=== PATIENT | female | born 1950 | race Caucasian/White ===

== ENCOUNTER 2018-11-11 11:08 | Inpatient (IN) | payer MEDICARE, BC ==
[2018-11-11] MEDS ORDERED: Temazepam 15 MG Cap PO PRN (15:18)
[2018-11-11] MEDS ORDERED: Bisacodyl 10 MG Supp RECTAL PRN (15:25)
[2018-11-11] MEDS ORDERED: Loperamide 2 MG Tab PO PRN (15:30)
[2018-11-11] MEDS ORDERED: Hydrocortisone 2.5% Crm 30 GM Tube TOP PRN (15:30)
[2018-11-11] MEDS ORDERED: Albuterol/Ipratropium 3.0-0.5 MG/3 ML Neb Soln NEB PRN (15:31)
[2018-11-11] MEDS ORDERED: Albuterol 0.083% 2.5 MG/3 ML Neb Soln INH PRN (16:00)
[2018-11-11] MEDS ORDERED: Warfarin 5 MG Tab PO SCH (16:00)
[2018-11-11] MEDS ORDERED: Ondansetron 4 MG Tab.DIS PO PRN (16:00)
--- NOTE | 2018-11-11 16:13 | PCM.HP ---
H&P History of Present Illness - General Date of Service: 11/11/18 Admit Problem/Dx: Admission Diagnosis/Problem Admission Diagnosis/Problem Osteoarthritis Source of Information: Patient, Family (Sister and son), Old Records ([facility] chart/EMR), Other (Limited transfer records from [facility]. [facility] records from [place]) History Limitations: Reports: No Limitations - History of Present Illness Initial Comments - Free Text/Narative: The patient was brought to the emergency room via private automobile from [facility] in [place] for direct admission into our swing bed unit after recent right total knee arthroplasty, which was complicated by postoperative anemia and difficult pain control. The patient had be placed on an IV heparin drip with additional IV morphine required for proper pain control. The patient denies any chest pain/pressure, heart flutter, dizziness, orthostasis, orthopnea , diaphoresis, paresthesias, recent decreased exercise tolerance, or any other anginal-type symptoms, although some moderate fatigue since the above surgery and hospitalization. No recent history of abdominal pain, heartburn, nausea, diarrhea, melena, gross hematochezia, or any food intolerance, including fatty foods, etc., although some mild constipation secondary to her narcotic medications. She denies any gross hematuria, colic, or other UTI symptoms. The patient also denies any recent fever, cough, wheezing, dyspnea, etc.. Onset of Symptoms: Reports: Gradual Duration of Symptoms: Reports: Constant, Improving Location: Reports: Upper Extremity, Right. Denies: Head, Face, Neck, Chest, Abdomen, Back, Pelvis, Upper Extremity, Left, Lower Extremity, Left, Lower Extremity, Right, Generalized, Radiates to Quality: Reports: Ache, Same as Previous Episode Severity: Moderate Improves with: Reports: Rest Worsens with: Reports: Movement Context: Reports: Other (As above). Denies: Rest, Trauma Associated Symptoms: Reports: Weakness (Improving). Denies: No Other Symptoms, Confusion, Chest Pain, Cough, cough w sputum, Fever/Chills, Headaches, Loss of Appetite, Malaise, Nausea/Vomiting, Rash, Seizure, Shortness of Breath, Syncope Right Knee Pain Score (Numeric/FACES): 5 - Related Data Allergies/Adverse Reactions: Allergies Allergy/AdvReac Type Severity Reaction Status Date / Time amoxicillin [Amoxicillin] Allergy Unknown Cannot Verified 11/11/18 13:34 Remember amoxicillin trihydrate Allergy Unknown Cannot Verified 11/11/18 13:34 [From Augmentin] Remember cefaclor [From Ceclor] Allergy Unknown Cannot Verified 11/11/18 13:34 Remember cephalexin [Cephalexin] Allergy Unknown Cannot Verified 11/11/18 13:34 Remember clavulanic acid Allergy Unknown Cannot Verified 11/11/18 13:34 Remember hydrocodone Allergy Unknown Cannot Verified 11/11/18 13:34 Remember potassium clavulanate Allergy Unknown Cannot Verified 11/11/18 13:34 [From Augmentin] Remember sulfamethizole Allergy Unknown Cannot Verified 11/11/18 13:34 Remember sulfisoxazole Allergy Unknown Cannot Verified 11/11/18 13:34 [From Gantrisin] Remember sulfisoxazole acetyl Allergy Unknown Cannot Verified 11/11/18 13:34 [From Gantrisin] Remember Home Medications: Home Meds Albuterol Sulfate [Albuterol Sulfate HFA] 2 puff INH Q4HR PRN 09/10/13 [History] Phytonadione [Vitamin K] 100 mcg PO DAILY 09/10/13 [History] Spironolactone [Aldactone] 25 mg PO DAILY 09/10/13 [History] Warfarin Sodium [Jantoven] 5 mg PO SUTUTHSA 09/10/13 [History] Zolpidem [Ambien] 5 mg PO BEDTIME 09/10/13 [History] atorvaSTATin [Lipitor] 20 mg PO BEDTIME 09/10/13 [History] traZODone 100 mg PO BEDTIME 09/10/13 [History] Acetaminophen [Tylenol Extra Strength] 2 tab PO TID 11/11/18 [History] Alendronate Sodium [Fosamax] 70 mg PO ASDIRECTED 11/11/18 [History] Allopurinol [Zyloprim] 100 mg PO DAILY 11/11/18 [History] Anastrozole [Arimidex] 1 mg PO DAILY 11/11/18 [History] Ascorbic Acid 500 mg PO TID 11/11/18 [History] Bisacodyl [Dulcolax] 5 mg PO BID PRN 11/11/18 [History] Bisacodyl [Dulcolax] 10 mg RECTAL DAILY PRN 11/11/18 [History] Calcium Carbonate [Calcium] 500 mg PO QAM 11/11/18 [History] Cetirizine HCl 10 mg PO DAILY 11/11/18 [History] Cholecalciferol (Vitamin D3) [Vitamin D3] 1,000 units PO DAILY 11/11/18 [History ] Clindamycin HCl 300 mg PO ASDIRECTED PRN 11/11/18 [History] Docusate Sodium 100 mg PO DAILY 11/11/18 [History] Doxepin [SINEquan] 10 mg PO BEDTIME 11/11/18 [History] Ferrous Sulfate 325 mg PO TIDMEALS 11/11/18 [History] Furosemide 20 mg PO DAILY@1200 11/11/18 [History] Furosemide [Lasix] 40 mg PO QAM 11/11/18 [History] HYDROmorphone [Dilaudid] 2 mg PO Q4H PRN MDD total knee arthroplasty 11/11/18 [ History] Hydrocortisone [Proctozone-HC 2.5% Crm] 1 applic RECTAL ASDIRECTED 11/11/18 [ History] Loperamide [Imodium AD] 2 mg PO ASDIRECTED MDD 8 caps per day 11/11/18 [History] Loperamide [Imodium AD] 4 mg PO ASDIRECTED PRN MDD 8 Caps per day 11/11/18 [ History] Non-Formulary Medication [NF Drug] 1 cap PO DAILY 11/11/18 [History] Polyethylene Glycol 3350 [MiraLAX] 1 packet PO DAILY PRN 11/11/18 [History] Propranolol [Inderal] 20 mg PO DAILY 11/11/18 [History] Warfarin [Coumadin] 7.5 mg PO MOWEFR 11/11/18 [History] Past Medical History HEENT History: Reports: Cataract, Impaired Vision, Other (See Below). Denies: Allergic Rhinitis, Glaucoma, Hard of Hearing, Macular Degeneration, Otitis Media , Retinal Detachment Other HEENT History: Patient wears reading glasses. Cardiovascular History: Reports: Afib, Cardiomyopathy, Heart Failure, Heart Murmur, Heart Valve Replacement, High Cholesterol, Hypertension, Other (See Below). Denies: Aneurysm, Arrhythmia, Blood Clots/VTE/DVT, CAD, NM, PVD, Syncope Other Cardiovascular History: Diastolic dysfunction with moderate right and left atrial enlargement/dilatation and mild to moderate pulmonary hypertension by echocardiogram with persistent tricuspid valve insufficiency as below. Severe tricuspid valve insufficiency with previous mitral valve insufficiency requiring mechanical valve replacement as below. Moderate cardiomegaly with no previous history of NM. Hyperlipidemiamixed. Respiratory History: Reports: Asthma, Bronchitis, Recurrent, Intubation, Previous. Denies: COPD, Intubation, Difficult, PE, Pneumonia, Recurrent, Pneumothorax, Pulmonary Fibrosis, TB Gastrointestinal History: Reports: Colon Polyp, Diverticulosis, Hemorrhoids, Other (See Below). Denies: Celiac Disease, Cholelithiasis, Chronic Constipation , Chronic Diarrhea, Fecal Incontinence, Gastritis, GERD, GI Bleed, Hepatitis, Hiatal Hernia, Inflammatory Bowel Disease, Irritable Bowel Syndrome, Jaundice, Pancreatitis, PUD Other Gastrointestinal History: Sigmoid diverticulosis with excision of her adenoma from the descending colon on 10/25/18. Genitourinary History: Reports: Urinary Incontinence. Denies: Acute Renal Failure, Chronic Renal Insuffiency, Renal Calculus, STD, UTI, Recurrent MEDICAL IMAGING SPECIALIST History: Reports: , Spontaneous : 5 Para: 4 LMP (Approximate): Other (See Below) Other OB/BYN History: First trimester SAB. Otherwise, Full term without complications during pregnancies or deliveries Musculoskeletal History: Reports: Arthritis, Back Pain, Chronic, Fracture, Gout , Neck Pain, Chronic, Osteoarthritis, Osteoporosis, Other (See Below). Denies: RA, SLE Other Musculoskeletal History: Bilateral distal radial ulnar fractures 2 initially at age 4. Neurological History: Reports: Headaches, Chronic, Migraines, Other (See Below) . Denies: Cerebral Aneurysms, Concussion, CVA, Head Trauma, MS, Neuropathy, Peripheral, Parkinson's, Seizure, TIA, Vertigo Other Neuro History: Right frontal CVA in July 2012. Chronic essential resting tremor. Psychiatric History: Reports: None. Denies: Abuse, Victim of, ADD, ADHD, Addiction, Anxiety, Depression, Psych Hospitalization(s), PTSD, Suicide Attempt , Suicidal Ideation Endocrine/Metabolic History: Reports: Multinodular Thyroid, Osteopenia, Osteoporosis. Denies: Diabetes, Gestational, Diabetes, Type I, Diabetes, Type II, Diabetes Mellitus, Type 3c, Hypothyroidism, IDDM Hematologic History: Reports: Anemia, Iron Deficiency, Other (See Below) Other Hematologic History: Thrombocytopenia. Immunologic History: Denies: AIDS, HIV, Immunosuppression, SLE Oncologic (Cancer) History: Reports: Breast, Other (See Below). 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 Dermatologic History: Reports: None. Denies: Eczema, Psoriasis - Infectious Disease History Infectious Disease History: Reports: Chicken Pox, Measles, Mumps. Denies: C- Difficile, Human Papilloma Virus (HPV), Meningitis, Mononucleosis, Pertussis ( Whooping Cough), Rheumatic Fever, Rubella, Scarlet Fever, Shingles, TB - Past Surgical History Head Surgeries/Procedures: Reports: None HEENT Surgical History: Reports: Adenoidectomy, Cataract Surgery, Laser Surgery , Oral Surgery, Tonsillectomy, Other (See Below). Denies: Eye Surgery, LASIK, Myringotomy w Tube(s), Naso-Sinus Surgery Other HEENT Surgeries/Procedures: Tonsillectomy and adenoidectomy at age 7. Bilateral cataract surgery 2012 with subsequent bilateral YAG of the posterior capsule in September 2018. [place] teeth extraction. Dental implant in 2018. Cardiovascular Surgical History: Reports: Valve Replacement, Other (See Below). Denies: Varicose, Vascular Surgery Other Cardiovascular Surgeries/Procedures: Mechanical mitral valve placement on 09/13/07. Respiratory Surgical History: Reports: Thoracentesis, Thoracotomy, Other (See Below) Other Respiratory Surgeries/Procedures: Right-sided pneumothorax with chest tube required at time of mitral valve replacement as above. GI Surgical History: Reports: Colonoscopy, Polypectomy, Other (See Below). Denies: Appendectomy, Cholecystectomy, EGD, Hernia, Abdominal, Hernia, Inguinal , Hernia Repair/Other Other GI Surgeries/Procedures: Colonoscopy with concomitant Polypectomy from the descending colon and additional hemorrhoid banding on 10/15/18. Flexible sigmoidoscopy on 08/12/13. Female Surgical History: Reports: Breast Biopsy (As below). Denies: Section, D&C, Hysterectomy, Oophorectomy, Salpingo-Oophorectomy, Tubal Ligation Endocrine Surgical History: Reports: Thyroid Biopsy, Other (See Below) Other Endocrine Surgeries/Procedures: Thyroid biopsy on 11/11/12. Neurological Surgical History: Reports: None. Denies: C-Spine, Discectomy, Laminectomy, Lumbar Spine, Sacral Spine, Spinal Fusion, Thoracic Spine, Vertebroplasty Musculoskeletal Surgical History: Reports: Joint Replacement, Knee Replacement, Other (See Below). Denies: Arthroscopic Knee, Arthroscopic Procedure, Carpal Tunnel, Ganglion Cyst, ORIF Other Musculoskeletal Surgeries/Procedures:: Right total knee arthroplasty on with previous left total knee arthroplasty in 2004. Oncologic Surgical History: Reports: Biopsy of Breast, Lumpectomy, Other (See Below) Other Oncologic Surgeries/Procedures: Left breast biopsy with subsequent left breast lumpectomy and lymph node dissection on 07/01/13. Dermatological Surgical History: Reports: None - Past Imaging History Past Imaging History: Reports: CAT Scan (Maxillofacial and head on 11/06/12.), Mammogram (Last on 04/25/13), Stress Testing (Low level stress test on 06/02/09) , Ultrasound (Left breast ultrasound on 04/25/13. Right leg soft tissue ultrasound on 09/04/11.) Social & Family History - Family History HEENT: Reports: Allergic Rhinitis, Glaucoma, Macular Degeneration, Retinal Detachment, Other (See Below) Other HEENT Family History: Sister with allergic rhinitis. Sister with macular degeneration. Brother with detached retina. Maternal grandfather with glaucoma. Cardiac: Reports: CAD, NM, Other (See Below) Other Cardiac Family History: Mother with NM in her 50s and concomitant valve replacement. Father with NM in his 60s. Respiratory: Reports: Asthma, COPD, Other (See Below) Other Respiratory Family Hisory: Sister with asthma. Brothers 2, mother, and father with COPD with history of tobacco use in all the above family members. GI: Reports: Colon Polyps, Other (See Below) Other GI Family History: Sister and brother with unknown type of colonic polyps. : Reports: Renal Disease/Insufficiency, Other (See Below) Other Family History: Other with end-stage renal disease of unknown etiology who refused dialysis. Musculoskeletal: Reports: Arthritis, Gout, Osteoarthritis, RA, Other (See Below) Other Musculoskeletal Family History: Father with history of gout and sister with rheumatoid arthritis. Endocrine/Metabolic: Reports: Hypothyroidism, Other (See Below) Other Endocrine/Metabolic Family History: Other with hypothyroidism Immunologic: Reports: Immunosuppression, Other (See Below) Other Immunologic Family History: Sister with unknown type of immunodeficiency. Oncologic: Reports: Breast, Leukemia, Lung, Ovarian, Other (See Below) Other Oncologic Family History: Sister with fatal metastatic ovarian cancer area first cousin with fatal breast cancer in her 40s to 50s. Mother with fatal lung cancer at age 63 with history of tobacco use. Paternal grandmother with unknown type of fatal leukemia in her 80s. - Tobacco Use Smoking Status *Q: Never Smoker Tobacco Use Within Last Twelve Months: No Used Tobacco, but Quit: No Smoking Cessation Information Provided To Patient: No Second Hand Smoke Exposure: No Second Hand Smoke Education Provided: No - Caffeine Use Caffeine Use: Reports: Soda (1 soda 2 times per week). Denies: Coffee, Energy Drinks, Tea - Alcohol Use Alcohol Use History: No Days Per Week of Alcohol Use: 0 Number of Drinks Per Day: 0 Total Drinks Per Week: 0 Total Drinks Per Week Comment: No previous DWIs, problems with alcohol abuse, etc. Alcohol Use in Last Twelve Months: No - Recreational Drug Use Recreational Drug Use: No Drug Use in Last 12 Months: No Recreational Drug Type: Denies: Amphetamines (Speed), Cocaine, Heroin, Inhalants (Glues, Solvents, Aerosols), LSD (Acid), Marijuana/Hashish, Methamphetamine, Morphine, Oxycodone - Living Situation & Occupation Living situation: Reports: (2012, 4 children), Alone H&P Review of Systems - Review of Systems: Review Of Systems: ROS reveals no pertinent complaints other than HPI. Exam - Exam Exam: See Below - Vital Signs Vital Signs: Last Vital Signs Temp 36.7 C 11/11/18 14:18 Pulse 78 11/11/18 14:18 Resp 20 11/11/18 14:18 BP 154/76 H 11/11/18 14:18 Pulse Ox 100 11/11/18 14:18 Weight: 93.44 kg - Exam Quality Assessment: DVT Prophylaxis. No: Supplemental Oxygen, Central Line/PICC , Urinary Catheter, Skin Breakdown, Restraints General: Alert, Oriented, Cooperative HEENT: Conjunctiva Clear, EACs Clear, EOMI, Hearing Intact, Mucosa Moist & [place] , Nares Patent, Normal Nasal Septum, Posterior Pharynx Clear, TMs Clear, Glasses , PERRLA Neck: Supple, Trachea Midline, Carotid Bruit (Mild bilateral carotid bruits versus transmitted heart sounds). No: Lymphadenopathy, Thyromegaly Lungs: Clear to Auscultation, Normal Respiratory Effort. No: Rub Cardiovascular: Regular Rate, Irregular Rhythm, Systolic Murmur (12/6 ANAMARIA of the aortic and mitral valves with additional mitral valve click). No: Rubs, Gallop/S3, Gallop/S4 GI/Abdominal Exam: Normal Bowel Sounds, Soft, Non-Tender, No Organomegaly, No Distention, No Abnormal Bruit, No Mass, Pelvis Stable, Other (Severe ecchymosis in the abdominal region secondary to previous IV heparin therapy, etc.). No: Guarding (Female) Exam: Deferred Rectal (Female) Exam: Deferred Back Exam: Normal Inspection, Full Range of Motion. No: CVA Tenderness (L), CVA Tenderness (R), Muscle Spasm Extremities: No Pedal Edema, Normal Capillary Refill, Joint Swelling (Right knee postoperative with dressing in place), Limited Range of Motion (Right knee secondary to recent surgery with automatic cooling pad in place), Other ( Multiple ecchymoses on the hands and forearms secondary to previous anticoagulation). No: Rizwana's Sign Peripheral Pulses: 2+: Radial (L), Radial (R), Dorsalis Pedis (L), Dorsalis Pedis (R) Skin: Ecchymosis (As above), Wound (Right knee postoperative) Neurological: Cranial Nerves Intact, Other (Moderate resting tremor without rigidity or cogwheeling), Babinski Absent Neuro Extensive - Mental Status: Alert, Oriented x3, Normal Mood/Affect, Normal Cognition Psychiatric: Alert, Normal Affect, Normal Mood. No: Agitated, Suicidal Ideation , Homicidal Ideation, Hallucinations, Withdrawal Symptoms - Patient Data Lab Results Last 24 hrs: To beconducted in the a.m. - Problem List (1) Osteoarthritis SNOMED Code(s): 261891298 ICD Code: M19.90 - UNSPECIFIED OSTEOARTHRITIS, UNSPECIFIED SITE Status: Acute Priority: High Current Visit: Yes Problem Details: Patient admitted to swing bed for further pain control, physical therapy, and occupational therapy. Attempt to taper patient's off of narcotics in the near future with consideration of regularly dosed Aleve therapy. Otherwise follow-up with and orthopedic clinic as already scheduled. Qualifiers: Osteoarthritis location: multiple joints (2) Atrial fibrillation SNOMED Code(s): 59678335 ICD Code: I48.91 - UNSPECIFIED ATRIAL FIBRILLATION Status: Chronic Priority: Medium Current Visit: Yes Problem Details: No chest pain or anginal type symptoms. IV heparinization was required during recent hospitalization with apparently therapeutic INR prior to transfer. Repeat blood work in the a.m. Qualifiers: Atrial fibrillation type: chronic Qualified Code(s): I48.2 - Chronic atrial fibrillation (3) Postoperative anemia SNOMED Code(s): 855709076, 597287061 ICD Code: D64.9 - ANEMIA, UNSPECIFIED Status: Chronic Priority: Medium Current Visit: Yes Problem Details: Moderate to severe postoperative anemia. Iron supplementation has been initiated by transferring physicians. Continue to observe closely especially in light of her Coumadin therapy for her atrial fibrillation (4) CHF (congestive heart failure) SNOMED Code(s): 51781208 ICD Code: I50.9 - HEART FAILURE, UNSPECIFIED Status: Chronic Priority: Medium Current Visit: Yes Problem Details: No Chest pain or anginal complaints as above. (5) Asthma SNOMED Code(s): 470749939 ICD Code: J45.909 - UNSPECIFIED ASTHMA, UNCOMPLICATED Status: Chronic Priority: Medium Current Visit: Yes Problem Details: Stable by history. Change from inhaler to nebulizer treatments secondary to difficult postoperative course prior to transfer. Qualifiers: Asthma severity: unspecified severity Asthma persistence: intermittent Problem List Initiated/Reviewed/Updated: Yes Orders Last 24hrs: Active Orders 24 hr Category Date Time Status Patient Status [ADT] Routine ADT 11/11/18 15:18 Active Communication Order [RC] 2000 Care 11/11/18 15:31 Active Intake and Output [RC] ASDIRECTED Care 11/11/18 15:18 Active Oxygen Therapy [RC] .PRN Care 11/11/18 15:18 Active RT Aerosol Therapy [RC] ASDIRECTED Care 11/11/18 15:33 Active RT Aerosol Therapy [RC] ASDIRECTED Care 11/11/18 15:34 Active RT Incentive Spirometry [RC] ASDIRECTED Care 11/11/18 15:34 Active Up With Assistance [RC] ASDIRECTED Care 11/11/18 15:18 Active VTE/DVT Education [RC] .PRN Care 11/11/18 15:18 Active Vital Signs [RC] DAILY Care 11/11/18 15:18 Active Consult to Case Management/Plant Attendant [CONS] Cons 11/11/18 15:18 Active Routine OT Evaluation and Treatment [CONS] Routine Cons 11/11/18 15:18 Active PT Evaluation and Treatment [CONS] Routine Cons 11/11/18 15:18 Active Fluid Restriction [DIET] Diet 11/11/18 Dinner Active CBC WITH AUTO DIFF [HEME] Routine Lab 11/12/18 05:11 Ordered COMPREHENSIVE METABOLIC PN,CMP [CHEM] Routine Lab 11/12/18 05:11 Ordered INR,PT,PROTHROMBIN TIME [COAG] Routine Lab 11/12/18 05:11 Ordered PRO B-TYPE NATRIUR PEPT,BNPPRO [CHEM] Routine Lab 11/12/18 05:11 Ordered TROPONIN I [CHEM] Routine Lab 11/12/18 05:11 Ordered URIC ACID [CHEM] Routine Lab 11/12/18 05:11 Ordered Acetaminophen [Tylenol Extra Strength] Med 11/11/18 18:00 Active 1,000 mg PO TID Albuterol [Proventil Neb Soln] Med 11/11/18 16:00 Active 2.5 mg INH Q2H PRN Albuterol/Ipratropium [DuoNeb 3.0-0.5 MG/3 ML] Med 11/11/18 15:31 Active 3 ml NEB Q4HRRT PRN Albuterol/Ipratropium [DuoNeb 3.0-0.5 MG/3 ML] Med 11/11/18 20:00 Active 3 ml NEB Q6HRRT Alendronate [Fosamax] Med 11/11/18 15:30 Ordered 70 mg PO ASDIRECTED Allopurinol [Zyloprim] Med 11/12/18 08:00 Active 100 mg PO DAILY Anastrozole [Arimidex] Med 11/12/18 08:00 Active 1 mg PO DAILY Ascorbic Acid [Vitamin C] Med 11/11/18 18:00 Active 500 mg PO TID Bisacodyl [Dulcolax] Med 11/11/18 15:25 Active 10 mg RECTAL DAILY PRN Bisacodyl [Dulcolax] Med 11/11/18 15:25 Active 5 mg PO BID PRN Calcium Carbonate [Calcium] Med 11/12/18 08:00 Ordered 500 mg PO QAM Cetirizine [ZyrTEC] Med 11/12/18 08:00 Active 10 mg PO DAILY Cholecalciferol (Vitamin D3) [Vitamin D3] Med 11/12/18 08:00 Active 1,000 units PO DAILY Docusate Sodium [Colace] Med 11/12/18 08:00 Active 100 mg PO DAILY Doxepin [SINEquan] Med 11/11/18 20:00 Active 10 mg PO BEDTIME Ferrous Sulfate Med 11/11/18 18:00 Active 325 mg PO TIDMEALS Furosemide [Lasix] Med 11/12/18 12:00 Ordered 20 mg PO DAILY@1200 Furosemide [Lasix] Med 11/12/18 08:00 Ordered 40 mg PO QAM HYDROmorphone [Dilaudid] Med 11/11/18 15:25 Ordered 2 mg PO Q4H PRN Hydrocortisone [Proctozone-HC 2.5% Crm] Med 11/11/18 15:30 Ordered DOSE gm TOP ASDIRECTED Loperamide [Imodium AD] Med 11/11/18 15:30 Ordered 2 mg PO ASDIRECTED Non-Formulary Medication [NF Drug] Med 11/12/18 08:00 Ordered DOSE each PO DAILY Ondansetron [Zofran ODT] Med 11/11/18 15:18 Ordered 4 mg PO Q6H PRN Polyethylene Glycol 3350 [MiraLAX] Med 11/11/18 15:28 Ordered DOSE gm PO DAILY PRN Propranolol [Inderal] Med 11/12/18 08:00 Ordered 20 mg PO DAILY Spironolactone [Aldactone] Med 11/12/18 08:00 Ordered 25 mg PO DAILY Warfarin [Coumadin] Med 11/12/18 15:28 Ordered 5 mg PO SUTUTHSA Warfarin [Coumadin] Med 11/11/18 15:30 Ordered 7.5 mg PO MOWEFR Zolpidem Med 11/11/18 20:00 Ordered 5 mg PO BEDTIME atorvaSTATin [Lipitor] Med 11/11/18 20:00 Ordered 20 mg PO BEDTIME traZODone Med 11/11/18 20:00 Ordered 100 mg PO BEDTIME Patient May [OM.PC] Click To Edit Oth 11/11/18 15:18 Ordered Resuscitation Status Routine Resus Stat 11/11/18 15:18 Ordered Medication Orders Acetaminophen (Tylenol Extra Strength) 1,000 mg PO TID ESTEFANIA Albuterol (Proventil Neb Soln) 2.5 mg INH Q2H PRN PRN Reason: SHORTNESS OF BREATH Albuterol/Ipratropium (Duoneb 3.0-0.5 Mg/3 Ml) 3 ml NEB Q4HRRT PRN PRN Reason: Dyspnea Albuterol/Ipratropium (Duoneb 3.0-0.5 Mg/3 Ml) 3 ml NEB Q6HRRT [facility] Alendronate Sodium (Fosamax) 70 mg PO ASDIRECTED [facility] Allopurinol (Zyloprim) 100 mg PO DAILY [facility] Anastrozole (Arimidex) 1 mg PO DAILY [facility] Ascorbic Acid (Vitamin C) 500 mg PO TID [facility] Bisacodyl (Dulcolax) 5 mg PO BID PRN PRN Reason: Constipation Bisacodyl (Dulcolax) 10 mg RECTAL DAILY PRN PRN Reason: Constipation Cetirizine HCl (Zyrtec) 10 mg PO DAILY [facility] Cholecalciferol (Vitamin D3) 1,000 units PO DAILY [facility] Docusate Sodium (Colace) 100 mg PO DAILY [facility] Doxepin HCl (Sinequan) 10 mg PO BEDTIME [facility] Ferrous Sulfate (Ferrous Sulfate) 325 mg PO TIDMEALS [facility] Furosemide (Lasix) 20 mg PO DAILY@1200 [facility] Furosemide (Lasix) 40 mg PO QAM [facility] Hydrocortisone (Proctozone-Hc 2.5% Crm) gm TOP ASDIRECTED [facility] Hydromorphone HCl (Dilaudid) 2 mg PO Q4H PRN PRN Reason: Pain (moderate 4-6) Stop: 11/17/18 20:00 Loperamide HCl (Imodium Ad) 2 mg PO ASDIRECTED [facility] Non-Formulary Medication (Atorvastatin [Lipitor]) 20 mg PO BEDTIME [facility] Non-Formulary Medication (Calcium Carbonate [Calcium]) 500 mg PO QAM [facility] Non-Formulary Medication (Nf Drug) each PO DAILY [facility] Non-Formulary Medication (Trazodone) 100 mg PO BEDTIME [facility] Non-Formulary Medication (Zolpidem) 5 mg PO BEDTIME [facility] Ondansetron HCl (Zofran Odt) 4 mg PO Q6H PRN PRN Reason: Nausea/Vomiting Polyethylene Glycol (Miralax) gm PO DAILY PRN PRN Reason: Constipation Propranolol HCl (Inderal) 20 mg PO DAILY [facility] Spironolactone (Aldactone) 25 mg PO DAILY [facility] Warfarin Sodium (Coumadin) 7.5 mg PO MOWEFR [facility] Warfarin Sodium (Coumadin) 5 mg PO [facility] Assessment/Plan Comment:: As above. Extensive precautions were given to the patient and her family, who are agreement with the treatment plan. Continue swing bed care as per instructions from physical therapy and occupational therapy.
[2018-11-11] MEDS: HYDROmorphone 2 MG Tab PO PRN (16:35)
[2018-11-11] MEDS: Bisacodyl 5 MG Tab PO PRN (16:36)
[2018-11-11] MEDS: Acetaminophen 500 MG Tab PO SCH (18:23)
[2018-11-11] MEDS: Ascorbic Acid 500 MG Tab PO SCH (18:25)
[2018-11-11] MEDS: Ferrous Sulfate 325 MG Tab PO SCH (18:25)
[2018-11-11] MEDS: Zolpidem 5 MG Tab PO SCH (20:05)
[2018-11-11] MEDS: Doxepin 10 MG Cap PO SCH (20:05)
[2018-11-11] MEDS: traZODone 50 MG Tab PO SCH (20:06)
[2018-11-11] MEDS: Albuterol/Ipratropium 3.0-0.5 MG/3 ML Neb Soln NEB SCH (20:06)
[2018-11-11] MEDS: atorvaSTATin 10 MG Tab PO SCH (20:06)
[2018-11-12] MEDS: HYDROmorphone 2 MG Tab PO PRN ×3 (01:13→20:08)
[2018-11-12] MEDS: Albuterol/Ipratropium 3.0-0.5 MG/3 ML Neb Soln NEB SCH ×2 (01:18→08:07)
[2018-11-12] MEDS: Sodium Chloride 0.9% 10 ML Syringe FLUSH PRN (08:04)
[2018-11-12] MEDS: Acetaminophen 500 MG Tab PO SCH ×3 (08:05→17:48)
[2018-11-12] MEDS: Cholecalciferol (Vitamin D3) 1,000 Unit Tab PO SCH (08:06)
[2018-11-12] MEDS: Docusate Sodium 100 MG Cap PO SCH (08:06)
[2018-11-12] MEDS: Ferrous Sulfate 325 MG Tab PO SCH ×3 (08:06→17:49)
[2018-11-12] MEDS: Spironolactone 25 MG Tab PO SCH (08:06)
[2018-11-12] MEDS: Allopurinol 100 MG Tab PO SCH (08:06)
[2018-11-12] MEDS: Propranolol 20 MG Tab PO SCH (08:07)
[2018-11-12] MEDS: Anastrozole 1 MG Tab PO SCH (08:07)
[2018-11-12] MEDS: Ascorbic Acid 500 MG Tab PO SCH ×3 (08:07→17:49)
[2018-11-12] MEDS: Cetirizine 10 MG Tab PO SCH (08:07)
[2018-11-12] MEDS: Furosemide 40 MG Tab PO SCH ×2 (08:07→11:50)
[2018-11-12] MEDS: Calcium Carbonate 500 MG Tab.Chew PO SCH (08:07)
--- NOTE | 2018-11-12 08:20 | PCM.PN ---
- General Info Date of Service: 11/12/18 Admission Dx/Problem (Free Text): 1. Status post right total knee arthroplasty 2. Postoperative anemia 3. Postoperative pain 4. Osteoarthritis Functional Status: Reports: Pain Controlled, Tolerating Diet, Ambulating, Urinating, Incentive Spirometry. Denies: New Symptoms Pain Score: 5 - Review of Systems General: Reports: Weakness (Mild postoperativeimproving). Denies: Fever, Fatigue, Chills, Night Sweats, Appetite (Adequate) HEENT: Denies: Ear Pain, Eye Pain, Headaches, Post Nasal Drip, Sinus Congestion , Sore Throat, Rhinitis, Visual Changes Pulmonary: Reports: No Symptoms. Denies: Shortness of Breath, Cough, Sputum, Wheezing Cardiovascular: Reports: No Symptoms. Denies: Chest Pain, Palpitations, Dyspnea on Exertion, Orthopnea, Edema, Lightheadedness Gastrointestinal: Reports: Constipation (Secondary to narcotics). Denies: Abdominal Pain, Decreased Appetite, Diarrhea, Difficulty Swallowing, Flatus, Hematochezia, Melena, Nausea, Vomiting Genitourinary: Reports: No Symptoms. Denies: Dysuria, Frequency, Burning, Urgency, Hematuria, Retention, Flank Pain Musculoskeletal: Reports: Leg Pain (Right knee postoperative), Joint Swelling ( Right knee). Denies: Neck Pain, Shoulder Pain, Arm Pain, Back Pain Skin: Reports: Bruising (Persistent but stable abdominal and extremity bruising) . Denies: Diaphoresis, Pruritis Neurological: Reports: Difficulty Walking (Postoperative), Weakness (As above). Denies: Confusion, Dizziness, Headache, Numbness, Paresthesia, Tingling, Change in Speech, Gait Disturbance Psychiatric: Reports: No Symptoms. Denies: Confusion, Depression, Anxiety, Agitation, Hallucinations - Patient Data Vitals - Most Recent: Last Vital Signs Temp 36.7 C 11/11/18 14:18 Pulse 78 11/11/18 14:18 Resp 20 11/11/18 14:18 BP 154/76 H 11/11/18 14:18 Pulse Ox 100 11/11/18 14:18 Vital Signs - 24 hr 11/11/18 14:18 Temperature [ 36.7 C Temporal] Pulse, 78 Peripheral [ Pulse Oximetry] Respiratory 20 Rate Blood Pressure 154/76 H [Right Upper Arm] O2 Sat by Pulse 100 Oximetry Weight - Most Recent: 93.44 kg I&O - Last 24 Hours: Intake & Output 11/11/18 11/12/18 11/12/18 22:59 06:59 14:59 Intake Total 75 Balance 75 Imaging Impressions - Last 24 Hours: Chest x-ray, PA and lateral, shows moderate cardiomegaly with mild centralized CHF and/or pulmonary hypertension. Mild COPD changes with no pulmonary infiltrates. Note status post medial sternotomy and mitral valve replacement. Surgical clips noted in the left breast. Moderate osteoarthritic and osteoporotic changes and kyphosis in the thoracic spine. Mild aortic valve calcification. No pneumothorax. Lab Results Last 24 Hours: Laboratory Results - last 24 hr 11/12/18 Range/Units 07:50 WBC 7.1 (4.0-10.2) K/uL RBC 2.19 L (3.77-5.09) M/uL Hgb 7.4 L* D (11.7-15.5) g/dL Hct 22.5 L* (34.0-46.0) % MCV 102.7 H (84.0-98.0) fL MCH 33.8 H (28.2-33.3) pg MCHC 32.9 (31.7-36.0) g/dL RDW 14.8 H (11.2-14.1) % Plt Count 157 D (150-350) K/uL Neut % (Auto) 79.5 (45.0-80.0) % Lymph % (Auto) 6.2 L (10.0-50.0) % [place] % (Auto) 11.6 (2.0-14.0) % Eos % (Auto) 2.4 (0.0-5.0) % Baso % (Auto) 0.3 (0.0-2.0) % Neut # (Auto) 5.62 (1.40-7.00) K/uL Lymph # (Auto) 0.44 L (0.50-3.50) K/uL [place] # (Auto) 0.82 (0.00-1.00) K/uL Eos # (Auto) 0.17 (0.00-0.50) K/uL Baso # (Auto) 0.02 (0.00-0.20) K/uL Med Orders - Current: Current Medications Acetaminophen (Tylenol Extra Strength) 1,000 mg PO TID ESTEFANIA Last Admin: 11/12/18 08:05 Dose: 1,000 mg Albuterol (Proventil Neb Soln) 2.5 mg INH Q2H PRN PRN Reason: SHORTNESS OF BREATH Albuterol/Ipratropium (Duoneb 3.0-0.5 Mg/3 Ml) 3 ml NEB Q4HRRT PRN PRN Reason: Dyspnea Albuterol/Ipratropium (Duoneb 3.0-0.5 Mg/3 Ml) 3 ml NEB Q6HRRT [facility] Last Admin: 11/12/18 08:07 Dose: Not Given Alendronate Sodium (Fosamax) 70 mg PO We@0600 [facility] Allopurinol (Zyloprim) 100 mg PO DAILY [facility] Last Admin: 11/12/18 08:06 Dose: 100 mg Anastrozole (Arimidex) 1 mg PO DAILY [facility] Last Admin: 11/12/18 08:07 Dose: 1 mg Ascorbic Acid (Vitamin C) 500 mg PO TID [facility] Last Admin: 11/12/18 08:07 Dose: 500 mg Atorvastatin Calcium (Lipitor) 20 mg PO BEDTIME [facility] Last Admin: 11/11/18 20:06 Dose: 20 mg Bisacodyl (Dulcolax) 5 mg PO BID PRN PRN Reason: Constipation Last Admin: 11/11/18 16:36 Dose: 5 mg Bisacodyl (Dulcolax) 10 mg RECTAL DAILY PRN PRN Reason: Constipation Calcium Carbonate/Glycine (Tums) 500 mg PO QAM [facility] Last Admin: 11/12/18 08:07 Dose: 500 mg Cetirizine HCl (Zyrtec) 10 mg PO DAILY [facility] Last Admin: 11/12/18 08:07 Dose: 10 mg Cholecalciferol (Vitamin D3) 1,000 units PO DAILY [facility] Last Admin: 11/12/18 08:06 Dose: 1,000 units Docusate Sodium (Colace) 100 mg PO DAILY [facility] Last Admin: 11/12/18 08:06 Dose: 100 mg Doxepin HCl (Sinequan) 10 mg PO BEDTIME [facility] Last Admin: 11/11/18 20:05 Dose: 10 mg Ferrous Sulfate (Ferrous Sulfate) 325 mg PO TIDMEALS [facility] Last Admin: 11/12/18 08:06 Dose: 325 mg Furosemide (Lasix) 20 mg PO DAILY@1200 [facility] Furosemide (Lasix) 40 mg PO QAM [facility] Last Admin: 11/12/18 08:07 Dose: 40 mg Heparin Sodium (Porcine) (Heparin Lock Flush 100 Units/Ml) 500 units FLUSH ASDIRECTED PRN PRN Reason: Other Last Admin: 11/12/18 08:04 Dose: 500 units Hydrocortisone (Proctozone-Hc 2.5% Crm) 0 gm TOP ASDIRECTED PRN PRN Reason: ITCHING OR MILD PAIN Hydromorphone HCl (Dilaudid) 2 mg PO Q4H PRN PRN Reason: Pain (moderate 4-6) Stop: 11/17/18 20:00 Last Admin: 11/12/18 08:04 Dose: 2 mg Loperamide HCl (Imodium Ad) 2 mg PO ASDIRECTED PRN PRN Reason: Diarrhea Non-Formulary Medication (Nf Drug) each PO DAILY [facility] Ondansetron HCl (Zofran Odt) 4 mg PO Q6H PRN PRN Reason: Nausea/Vomiting Polyethylene Glycol (Miralax) 17 gm PO DAILY PRN PRN Reason: Constipation Propranolol HCl (Inderal) 20 mg PO DAILY [facility] Last Admin: 11/12/18 08:07 Dose: 20 mg Sodium Chloride (Saline Flush) 10 ml FLUSH ASDIRECTED PRN PRN Reason: Keep Vein Open Last Admin: 11/12/18 08:04 Dose: 10 ml Spironolactone (Aldactone) 25 mg PO DAILY [facility] Last Admin: 11/12/18 08:06 Dose: 25 mg Trazodone HCl (Trazodone) 100 mg PO BEDTIME [facility] Last Admin: 11/11/18 20:06 Dose: 100 mg Warfarin Sodium (Coumadin) 7.5 mg PO MoWeFr@1600 [facility] Last Admin: 11/11/18 16:36 Dose: 7.5 mg Warfarin Sodium (Coumadin) 5 mg PO SuTuThSa@1600 [facility] Zolpidem Tartrate (Ambien) 5 mg PO BEDTIME [facility] Last Admin: 11/11/18 20:05 Dose: 5 mg Discontinued Medications Temazepam (Restoril) 15 mg PO BEDTIME PRN PRN Reason: Sleep - Exam Quality Assessment: DVT Prophylaxis (Coumadin). No: Supplemental Oxygen, Central Line/PICC, Urine Catheter, Skin Breakdown, Restraints General: Alert, Oriented, Cooperative, No Acute Distress HEENT: Pupils Equal, Pupils Reactive, EOMI, Mucous Membr. Moist/[place] Neck: Supple, Trachea Midline, No JVD, No Thyromegaly, Carotid Bruit (Stable mild bilateral carotid bruits versus transmitted heart sounds). No: Lymphadenopathy Lungs: Clear to Auscultation, Normal Respiratory Effort. No: Rub Cardiovascular: Regular Rate, Irregular Rhythm, Murmurs (Stable 12/6 ANAMARIA of the aortic and mitral valves with additional mitral valve click noted from her mechanical valve). No: Gallops, Rubs GI/Abdominal Exam: Normal Bowel Sounds, Soft, Non-Tender, No Organomegaly, No Distention, No Abnormal Bruit, No Mass, Other (Obese. Stable severe ecchymosis of the abdominal region). No: Guarding (Female) Exam: Deferred Back Exam: Full Range of Motion, Other (Mild kyphosis). No: CVA Tenderness (L) , CVA Tenderness (R), Muscle Spasm, Paraspinal Tenderness, Vertebral Tenderness Extremities: No Pedal Edema, Joint Swelling (Normal postoperative right knee effusion with dressing in place and only minimal hemorrhagic drainage and surrounding ecchymosis), Limited Range of Motion (Right knee postoperative). No : Rizwana's Sign, Increased Warmth Peripheral Pulses: 2+: Radial (L), Radial (R), Dorsalis Pedis (L), Dorsalis Pedis (R) Skin: Ecchymosis (As above) Wound/Incisions: Healing Well, Drainage (As above) Neurological: No New Focal Deficit, Other (Stable moderate resting tremor with no rigidity, cogwheeling, etc.) Psy/Mental Status: Alert, Normal Affect, Normal Mood. No: Agitated, Hallucinations, Withdrawal Symptoms EKG INTERPRETATION EKG Date: 11/12/18 Time: 09:47 Rhythm: A-Fib (With occasional PVCs) Rate (Beats/Min): 81 [place]: Normal (Left cardiac axis) P-Wave: Variable QRS: RBBB (0.14 representing a complete bifascicular bundle-branch block) ST-T: Other (T-wave inversion in leads 1 and aVL consistent with lateral wall cardiac ischemia) QT: Normal [place]/PQ Interval: Variable. Extreme poor R-wave progression in the anterior leads Comparison: NA - No Prior EKG EKG Interpretation Comments: 1. Lateral wall cardiac ischemia 2. Complete bifascicular bundle-branch block 3. PVCs - Problem List & Annotations (1) Osteoarthritis SNOMED Code(s): 343197592 Code(s): M19.90 - UNSPECIFIED OSTEOARTHRITIS, UNSPECIFIED SITE Status: Acute Priority: High Current Visit: Yes Qualifiers: Osteoarthritis location: multiple joints Annotation/Comment:: Improving postoperative right knee pain. Physical therapy and occupational therapy have been ordered. Patient admitted to swing bed for further pain control, physical therapy, and occupational therapy. Attempt to taper patient's off of narcotics in the near future with regularly dosed Aleve therapy to be initiated today. Continue to observe INRs closely. Otherwise follow-up with [facility] and orthopedic clinic as already scheduled. (2) Atrial fibrillation SNOMED Code(s): 58495255 Code(s): I48.91 - UNSPECIFIED ATRIAL FIBRILLATION Status: Chronic Priority: Medium Current Visit: Yes Qualifiers: Atrial fibrillation type: chronic Qualified Code(s): I48.2 - Chronic atrial fibrillation Annotation/Comment:: No chest pain or anginal type symptoms. Continue close observation of her INR secondary to Aleve therapy as above with elevated INR today. IV heparinization was required during recent hospitalization with apparently therapeutic INR prior to transfer. (3) Postoperative anemia SNOMED Code(s): 563894024, 202655794 Code(s): D64.9 - ANEMIA, UNSPECIFIED Status: Chronic Priority: Medium Current Visit: Yes Annotation/Comment:: Moderate to severe postoperative anemia. Iron supplementation on a 3 times a day basis had been initiated by transferring physicians. Continue to observe closely especially in light of her Coumadin therapy for her atrial fibrillation. Note significant abdominal, etc. ecchymosis, which is stable at this time. Repeat CBC with next INR. (4) CHF (congestive heart failure) SNOMED Code(s): 87705178 Code(s): I50.9 - HEART FAILURE, UNSPECIFIED Status: Chronic Priority: Medium Current Visit: Yes Qualifiers: Heart failure chronicity: chronic Annotation/Comment:: No Chest pain or anginal complaints as above. Troponin I is still normal, however elevated BNP today. Repeat blood work, including cardiac enzymes, INR, etc. in the a.m.. Note lateral wall cardiac ischemia by today's EKG. Increase her Lasix therapy to 40 mg by mouth twice a day, a.m. and at noon additional lisinopril every afternoon. Patient is already on spironolactone. May need additional potassium supplementation depending on blood work results tomorrow. (5) Asthma SNOMED Code(s): 843618203 Code(s): J45.909 - UNSPECIFIED ASTHMA, UNCOMPLICATED Status: Chronic Priority: Medium Current Visit: Yes Qualifiers: Asthma severity: unspecified severity Asthma persistence: intermittent Annotation/Comment:: Stable by history. Patient apparently only using her inhaler a few times per month prior to recent surgery. She does not wish to continue aggressive nebulizer treatments at this time, however she does agree to DuoNeb treatments on a when necessary basis. Changed from inhaler to nebulizer treatments secondary to difficult postoperative course prior to transfer at time of admission, however I will respect patient's wishes for change of this therapy as above. (6) PVC's (premature ventricular contractions) SNOMED Code(s): 48675700 Code(s): I49.3 - VENTRICULAR PREMATURE DEPOLARIZATION Status: Acute Priority: Medium Current Visit: Yes Onset Date: 11/12/18 Annotation/ Comment:: Newly diagnosed. Nonsymptomatic. Observe for now. (7) Bifascicular bundle branch block SNOMED Code(s): 44514571 Code(s): I45.2 - BIFASCICULAR BLOCK Status: Acute Priority: Medium Current Visit: Yes Onset Date: 11/12/18 Annotation/Comment:: Newly diagnosed. Observe for now. - Problem List Review Problem List Initiated/Reviewed/Updated: Yes - My Orders Last 24 Hours: My Active Orders 11/11/18 15:18 Patient Status [ADT] Routine Intake and Output [RC] ASDIRECTED Oxygen Therapy [RC] .PRN Up With Assistance [RC] ASDIRECTED VTE/DVT Education [RC] .PRN Vital Signs [RC] DAILY Consult to Case Management/Waffle Machine Operator [CONS] Routine OT Evaluation and Treatment [CONS] Routine PT Evaluation and Treatment [CONS] Routine Patient May [OM.PC] Click To Edit Resuscitation Status Routine 11/11/18 15:25 Bisacodyl [Dulcolax] 10 mg RECTAL DAILY PRN Bisacodyl [Dulcolax] 5 mg PO BID PRN HYDROmorphone [Dilaudid] 2 mg PO Q4H PRN 11/11/18 15:28 Polyethylene Glycol 3350 [MiraLAX] 17 gm PO DAILY PRN 11/11/18 15:30 Hydrocortisone [Proctozone-HC 2.5% Crm] 0 gm TOP ASDIRECTED PRN Loperamide [Imodium AD] 2 mg PO ASDIRECTED PRN 11/11/18 15:31 Communication Order [RC] 2000 Albuterol/Ipratropium [DuoNeb 3.0-0.5 MG/3 ML] 3 ml NEB Q4HRRT PRN 11/11/18 15:33 RT Aerosol Therapy [RC] ASDIRECTED 11/11/18 15:34 RT Aerosol Therapy [RC] ASDIRECTED RT Incentive Spirometry [RC] ASDIRECTED 11/11/18 16:00 Albuterol [Proventil Neb Soln] 2.5 mg INH Q2H PRN Ondansetron [Zofran ODT] 4 mg PO Q6H PRN Warfarin [Coumadin] 7.5 mg PO MoWeFr@1600 11/11/18 18:00 Acetaminophen [Tylenol Extra Strength] 1,000 mg PO TID Ascorbic Acid [Vitamin C] 500 mg PO TID Ferrous Sulfate 325 mg PO TIDMEALS 11/11/18 19:12 Communication Order [RC] 08,20 Heparin Sodium [Heparin Lock Flush 100 Units/ML] 500 units FLUSH ASDIRECTED PRN Sodium Chloride 0.9% [Saline Flush] 10 ml FLUSH ASDIRECTED PRN 11/11/18 19:13 Communication Order [RC] 08,11/11/18 19:14 Communication Order [RC] ,11/11/18 19:15 Communication Order [RC] 08,11/11/18 19:16 Communication Order [RC] ,11/11/18 20:00 Albuterol/Ipratropium [DuoNeb 3.0-0.5 MG/3 ML] 3 ml NEB Q6HRRT Doxepin [SINEquan] 10 mg PO BEDTIME Zolpidem [Ambien] 5 mg PO BEDTIME atorvaSTATin [Lipitor] 20 mg PO BEDTIME traZODone 100 mg PO BEDTIME 11/11/18 Dinner Fluid Restriction [DIET] 11/12/18 05:11 COMPREHENSIVE METABOLIC PN,CMP [CHEM] Routine INR,PT,PROTHROMBIN TIME [COAG] Routine PRO B-TYPE NATRIUR PEPT,BNPPRO [CHEM] Routine TROPONIN I [CHEM] Routine URIC ACID [CHEM] Routine 11/12/18 08:00 Allopurinol [Zyloprim] 100 mg PO DAILY Anastrozole [Arimidex] 1 mg PO DAILY Calcium Carbonate [Tums] 500 mg PO QAM Cetirizine [ZyrTEC] 10 mg PO DAILY Cholecalciferol (Vitamin D3) [Vitamin D3] 1,000 units PO DAILY Docusate Sodium [Colace] 100 mg PO DAILY Furosemide [Lasix] 40 mg PO QAM Non-Formulary Medication [NF Drug] DOSE each PO DAILY Propranolol [Inderal] 20 mg PO DAILY Spironolactone [Aldactone] 25 mg PO DAILY 11/12/18 12:00 Furosemide [Lasix] 20 mg PO DAILY@1200 11/12/18 16:00 Warfarin [Coumadin] 5 mg PO SuTuThSa@1600 11/13/18 06:00 Alendronate [Fosamax] 70 mg PO We@0600 - Assessment Assessment:: As above - Plan Plan:: As above. Extensive precautions were given to the patient, who is in agreement with the treatment plan. Continue swing bed care as per instructions from physical therapy and occupational therapy. Donato Guillory M.D., at the [facility] to follow the patient during my vacation.
[2018-11-12 08:38] LABS: CHLORIDE,CL 98 mmol/L (98-107); SODIUM,NA 133 mmol/L (136-145)
[2018-11-12] MEDS ORDERED: Furosemide 20 MG Tab PO SCH (12:00)
[2018-11-12] MEDS ORDERED: Warfarin 5 MG Tab PO SCH (16:00)
--- OUTSIDE RECORDS SUMMARY | 2018-11-12 16:25 | XMSREPORT ---
:1950 Author Organization [facility] Address [facility] [place] [address] Care Team Providers Name Role Phone Ezra Cerna Referring Physician Arnie Bailey MD Primary Care Provider Arnie Bailey MD Attributed Provider Reason for Referral (Routine) Status Reason Specialty Diagnoses / Procedures Referred By Contact Referred To Contact [address] [address] (Routine) Status Reason Specialty Diagnoses / Procedures Referred By Contact Referred To Contact [address] [address] Reason for Visit Auth/Cert (Routine) Status Reason Specialty Diagnoses / Referred By Referred To Procedures Contact Contact Continuity of Care Diagnoses Pain in right knee Unilateral primary osteoarthritis, right knee [place], Procedures ARTHROPLASTY KNEE CONDYLE & [facility] LAT COMPARTMENTS WWO AYDEN Davis MD [address] [place] [address] Encounter Details Date Type Department Care Team Description 11/05/2018 - Hospital Encounter [facility] [place], S/P total knee 11/11/2018 [place] [facility] MD Ryan arthroplasty, right [address] [place] [address] [place] [address] [place] [address] [place], [place] [phone] Allergies Active Allergy Reactions Severity Noted Date Comments Amoxicillin Hives (High), Rash High 12/06/2011 Augmentin Hives (High), Rash High 12/06/2011 Cefaclor Hives (High), Rash High 12/06/2011 Cephalexin Nausea and Vomiting, 12/06/2011 Diarrhea Clavulanic Acid Hives (High), Rash High 12/06/2011 Sulfisoxazole Hives (High), Rash High 12/06/2011 Wjrlqsxxobp-Fejn-Xnisrn Supp Hives (High), Rash High 12/06/2011 Na Hives (High), Rash High 12/06/2011 Jsdffukd-Vkyafwvrqcudmgbr-Skro ethoprim documented as of this encounter (statuses as of 11/11/2018) Medications Medication Sig Dispensed Refills Start End Status Date Date vitamin K 100 MCG Take 100 mcg by 0 Active TABS tablet mouth 1 time per day. To stabilize dietary intake of vitamin K while on coumadin vitamin D3, Take 1 tablet by 30 tablet 11 01/29/20 Active cholecalciferol, mouth 1 time per 14 1000 unit tablet day. misc. devices 1 Units as needed 1 each 1 09/30/19 Active KITIndications: (chemotherapy 15 Breast cancer, wig). left (HCC) calcium carbonate Take 500 mg by 0 Active (OSCAL 500) 500 mg mouth 1 time a tablet day with breakfast clindamycin Take 2 capsules 2 capsule 4 03/14/20 Active (CLEOCIN) 150 mg (300 mg) by mouth 17 capsule as needed (prior to dental appointments) cetirizine Take 1 tablet (10 30 tablet 11 03/14/20 Active (ZYRTEC) 10 mg mg) by mouth 1 17 tablet time per day MODI PO Take 1 capsule by 0 Active mouth 1 time per day COUMADIN 5 MG 7.5 mg on M, W, 108 tablet 4 06/18/19 Active tabletIndications: F; 5 mg all other 19 S/P mitral valve days Weekly total replacement with 42.5 mg metallic valve anastrozole TAKE 1 TABLET BY 90 tablet 3 08/27/19 Active (ARIMIDEX) 1 MG MOUTH ONCE DAILY 19 tabletIndications: Infiltrating ductal carcinoma of right breast (HCC), Malignant neoplasm of upper-outer quadrant of left breast in female, estrogen receptor positive (HCC) misc. devices 1 Units as needed 1 each 11 09/11/19 Active KITIndications: (Wear bras and 19 Breast cancer prosthesis as (HCC) needed) zolpidem (AMBIEN) TAKE 1/2 TABLET 90 tablet 0 10/01/19 Active 10 mg BY MOUTH AT 19 tabletIndications: BEDTIME Insomnia, unspecified type docusate sodium Take 100 mg by 0 Active (COLACE) 100 mg mouth 1 time per capsule day atorvaSTATin Take 1 tablet (20 90 tablet 4 10/02/19 Active (LIPITOR) 20 mg mg) by mouth 19 tabletIndications: every night at Mixed bedtime hyperlipidemia traZODone Take 1 tablet 90 tablet 4 10/02/19 Active (DESYREL) 100 mg (100 mg) by mouth 19 tabletIndications: every night at Insomnia, bedtime unspecified type spironolactone Take 1 tablet (25 90 tablet 4 10/02/19 Active (ALDACTONE) 25 mg mg) by mouth 1 19 tabletIndications: time per day Chronic diastolic heart failure (HCC), Bilateral edema of lower extremity polyethylene Take 3 500 g 0 10/02/19 Active glycol (MIRALAX) teaspoonsful (1 19 powderIndications: tablespoonful) by Other constipation mouth 1 time a day as needed for constipation hydrocortisone, INSERT RECTALLY 1 30 g 1 10/02/19 Active rectal, TIME A DAY 19 (PROCTO-MED HC) NEEDED FOR 2.5 % ITCHING OR MILD creamIndications: PAIN. Hemorrhoids, unspecified hemorrhoid type furosemide (LASIX) 40mg in am and 135 tablet 2 10/02/19 Active 40 mg 20mg at noon 19 tabletIndications: Chronic diastolic heart failure (HCC), Essential hypertension ferrous sulfate Take 1 tablet 0 10/02/19 Active (65 MG FE PER 325 (325 mg) by mouth 19 MG TABLET) 325 mg 3 times a day tabletIndications: Iron deficiency anemia, unspecified iron deficiency anemia type doxepin (SINEQUAN) Take 1 capsule 30 capsule 5 10/02/19 Active 10 MG CAPS (10 mg) by mouth 19 capsuleIndications every night at : Insomnia, bedtime unspecified type allopurinol Take 1 tablet 90 tablet 2 10/02/19 Active (ZYLOPRIM) 100 mg (100 mg) by mouth 19 tabletIndications: 1 time per day Acute gout, unspecified cause, unspecified site alendronate TAKE 1 TABLET BY 12 tablet 0 10/02/19 Active (FOSAMAX) 70 mg MOUTH 1 TIME A 19 tabletIndications: WEEK. TAKE 1/2 Infiltrating HOUR BEFORE THE ductal carcinoma FIRSTFOOD OF DAY. of right breast DO NOT LIE DOWN (HCC) FOR 30 MINUTES AFTER TAKING. albuterol HFA Inhale 2 puffs 3 Inhaler 4 10/02/19 Active (PROVENTIL,PROAIR, orally every 4 to 19 VENTOLIN) 108 (90 6 hours as needed Base) MCG/ACT for shortness of inhalerIndications breath : Mild (allergies) Shake intermittent well before asthma without using. complication propranolol Take 1 tablet (20 90 tablet 4 10/02/19 Active (INDERAL) 20 mg mg) by mouth 1 19 020 tabletIndications: time per day Atrial fibrillation, unspecified type (HCC) vitamin C, Take 500 mg by 0 Active ascorbic acid, 500 mouth 3 times a MG tablet day acetaminophen Take 2 tablets 60 tablet 0 11/12/19 Active (TYLENOL) 500 mg (1,000 mg) by 19 tabletIndications: mouth 3 times a S/P total knee day arthroplasty, right bisacodyl Take 1 tablet (5 30 tablet 0 11/12/19 Active (DULCOLAX) 5 mg mg) by mouth 2 19 tabletIndications: times a day as Constipation due needed for to opioid therapy constipation bisacodyl Insert 1 30 suppository 0 11/12/19 Active (DULCOLAX) 10 mg suppository (10 19 suppositoryIndicat mg) rectally 1 ions: Constipation time a day as due to opioid needed for therapy constipation Unwrap before inserting. Do not swallow. HYDROmorphone Take 1 tablet (2 14 tablet 0 11/12/19 Active (DILAUDID) 2 mg mg) by mouth 19 tabletIndications: Every 4 hours as S/P total knee needed for arthroplasty, moderate pain right loperamide Take 2 caps after 20 capsule 0 11/12/19 Active (IMODIUM) 2 mg the first loose 19 capsuleIndications stool, then 1 cap : Diarrhea of after each loose infectious origin stool, but no more than 8 caps per day. vitamin C, Take 1 tablet 60 tablet 3 01/23/20 Discontinued ascorbic acid, 250 (250 mg) by mouth 17 019 MG 2 times a day tabletIndications: Iron deficiency anemia, unspecified iron deficiency anemia type acetaminophen-code TAKE ONE TABLET 21 tablet 0 04/01/20 Discontinued ine #3 (TYLENOL BY MOUTH THREE 18 019 #3) 300-30 mg TIMES DAILY tabletIndications: NEEDED Right wrist pain benzonatate TAKE 1 CAPSULE BY 1 10/01/19 Discontinued (TESSALON) 100 mg MOUTH EVERY 6-8 19 019 capsule HOURS NEEDED. 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 10/20/2014 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 Overview: Contributed to by chemotherapy Estrogen receptor positive tumor status 01/30/2014 Malignant neoplasm of upper-outer quadrant of female breast 01/30/2014 Anticoagulated on Coumadin 01/30/2014 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/10/2013 Personal history of chemotherapy 07/31/2013 Metastasis to lymph nodes 05/23/2013 Invasive ductal carcinoma of breast 05/23/2013 Multiple thyroid nodules 11/11/2012 Mitral valve replaced 12/15/2011 Mixed hyperlipidemia 06/28/2011 Persistent disorder of initiating or maintaining sleep 12/21/2009 Chronic diastolic heart failure 12/14/2009 Anemia 01/12/2009 [facility] current use of anticoagulant therapy 11/16/2008 Tricuspid regurgitation 10/18/2005 Primary localized osteoarthrosis, lower leg 10/18/2005 Migraine 10/18/2005 Mild intermittent asthma without complication 10/13/2002 Essential hypertension 10/13/2002 Chronic atrial fibrillation 10/13/2002 S/P mitral valve replacement with metallic valve 09/12/2002 documented as of this encounter (statuses as of 11/11/2018) Resolved Problems Problem Noted Date Resolved Date Acute GI bleeding 08/10/2013 05/18/2014 Chemotherapy induced thrombocytopenia 08/10/2013 06/01/2014 S/P mastectomy 07/01/2013 05/18/2014 Encounter for long-term (current) use of other medications 12/14/20092013 Heart valve replaced by other means 06/14/2009 07/04/2013 Mitral valve disorder 11/05/2018 Atrial flutter 11/05/2018 documented as of this encounter (statuses as of 11/11/2018) Immunizations Name Dates Previously Given Next Due FLU VACCINE HIGH DOSE 65YR+ 03/14/2017 FLU VACCINE HIGH DOSE 65YR+(Fluzone) 03/06/2018 Influenza Vaccine,unspecified 02/23/2015, 04/06/2014 Pneumococcal Conj PCV13 03/06/2018 Pneumococcal Polysaccharide PPSV23 04/06/2014 Zoster Recombinant (Shingrix) 09/04/2018, 06/05/2018 documented as of this encounter Social History Tobacco Use Types Packs/Day Years Used Date Never Smoker Smokeless Tobacco: Never Used Alcohol Use Drinks/Week oz/Week Comments No 0 Standard drinks or equivalent 0.0 Never Sex Assigned at Date Recorded Not on file Job Start Date Occupation Industry Not on file Not on file Not on file Travel History Travel Start Travel End No recent travel history available. documented as of this encounter Last Filed Vital Signs Vital Sign Reading Time Taken Blood Pressure 117/54 11/11/2018 8:00 AM CDT Pulse 78 11/11/2018 8:00 AM CDT Temperature 36.8 C (98.3 F) 11/11/2018 8:00 AM CDT Respiratory Rate 16 11/11/2018 8:00 AM CDT Oxygen Saturation 99% 11/11/2018 8:00 AM CDT Inhaled Oxygen Concentration - - Weight 90.1 kg (198 lb 9.6 oz) 11/09/2018 7:05 AM CDT Height 154.9 cm (5' 1") 11/05/2018 7:12 AM CDT Body Mass Index 37.53 11/05/2018 7:12 AM CDT documented in this encounter Functional Status Functional Status Response Date of Assessment Is the person deaf or does he/she have serious difficulty No 10/30/2018 hearing? Is this person blind or does he/she have difficulty No 10/30/2018 seeing even when wearing glasses? Do you have difficulty with walking, balance, climbing No 10/30/2018 stairs, or had a fall in the last 3 months? Does the patient have difficulty dressing or bathing? No 10/30/2018 Because of a physical, mental, or emotional condition; No 10/30/2018 does this person have difficulty doing errands alone such as visiting a doctor's office or shopping? Cognitive Status Response Date of Assessment Because of a physical, mental, or emotional condition; No 10/30/2018 does this person have serious difficulty concentrating, remembering, or making decisions? documented as of this encounter Discharge Summaries Not on filedocumented in this encounter Discharge Instructions Mela Marte LPN - 11/10/2018Reviewed "Orthopedic Discharge Education Guidelines" and "Pain management after You are Discharged" documents with patient. Paper copies were attached to AVS for patient to use as a reference for follow up questions. Preventing Blood Clots (Deep Vein Thrombosis) In the days and weeks after surgery, you have a higher chance of developing a deep vein thrombosis (DVT). This is a condition in which a blood clot or thrombus develops in a deep vein. They are most common in the leg. But, a DVT may develop in an arm, or another deep vein in the body. A piece of the clot, called an embolus, can separate from the vein and travel to the lungs. A blood clot in the lungsis called a pulmonary embolus (PE). This can cut off the flow of blood. It is a medical emergency and may cause . Deep vein thrombosis can occur even after you go home. Follow all instructions from your health careprovider. The following are some general guidelines about DVT prevention: Anticoagulant medication. If an anticoagulant was prescribed, make sure you follow all directionsabout taking it. Be sure you know what foods and medicines may interact. Also, ask your health care provider what to do if you forget to take a dose. Compression stockings. Your health care provider will tell you how often to wear and remove the stockings. Follow all instructions closely. Each time you remove your stockings, check your legs and feet for reddened areas or sores. If you see any changes, call your health care provider right away. Returning to activity. Follow all instructions about returning to activities. Be as active as youcan. This improves blood flow and helps prevent a clot from forming. When in bed or in a chair, continue with the ankle exercises you did in the hospital. Elevate your extremity above the level of yourheart to help prevent swelling. documented in this encounter Medications at Time of Discharge Medication Sig Dispensed Refills Start Date End Date acetaminophen Take 2 tablets 60 tablet 0 11/11/2018 (TYLENOL) 500 mg (1,000 mg) by mouth tabletIndications: 3 times a day S/P total knee arthroplasty, right bisacodyl (DULCOLAX) Take 1 tablet (5 30 tablet 0 11/11/2018 5 mg mg) by mouth 2 tabletIndications: times a day as Constipation due to needed for opioid therapy constipation bisacodyl (DULCOLAX) Insert 1 30 suppository 0 11/11/2018 10 mg suppository (10 mg) suppositoryIndication rectally 1 time a s: Constipation due day as needed for to opioid therapy constipation Unwrap before inserting. Do not swallow. HYDROmorphone Take 1 tablet (2 14 tablet 0 11/11/2018 (DILAUDID) 2 mg mg) by mouth Every tabletIndications: 4 hours as needed S/P total knee for moderate pain arthroplasty, right loperamide (IMODIUM) Take 2 caps after 20 capsule 0 11/11/2018 2 mg the first loose capsuleIndications: stool, then 1 cap Diarrhea of after each loose infectious origin stool, but no more than 8 caps per day. vitamin C, ascorbic Take 500 mg by 0 acid, 500 MG tablet mouth 3 times a day docusate sodium Take 100 mg by 0 (COLACE) 100 mg mouth 1 time per capsule day atorvaSTATin Take 1 tablet (20 90 tablet 4 10/01/2018 (LIPITOR) 20 mg mg) by mouth every tabletIndications: night at bedtime Mixed hyperlipidemia traZODone (DESYREL) Take 1 tablet (100 90 tablet 4 10/01/2018 100 mg mg) by mouth every tabletIndications: night at bedtime Insomnia, unspecified type spironolactone Take 1 tablet (25 90 tablet 4 10/01/2018 (ALDACTONE) 25 mg mg) by mouth 1 time tabletIndications: per day Chronic diastolic heart failure (HCC), Bilateral edema of lower extremity polyethylene glycol Take 3 teaspoonsful 500 g 0 10/01/2018 (MIRALAX) (1 tablespoonful) powderIndications: by mouth 1 time a Other constipation day as needed for constipation hydrocortisone, INSERT RECTALLY 1 30 g 1 10/01/2018 rectal, (PROCTO-MED TIME A DAY HC) 2.5 % NEEDED FOR ITCHING creamIndications: OR MILD PAIN. Hemorrhoids, unspecified hemorrhoid type furosemide (LASIX) 40 40mg in am and 20mg 135 tablet 2 10/01/2018 mg tabletIndications: at noon Chronic diastolic heart failure (HCC), Essential hypertension ferrous sulfate (65 Take 1 tablet (325 0 10/01/2018 MG FE PER 325 MG mg) by mouth 3 TABLET) 325 mg times a day tabletIndications: Iron deficiency anemia, unspecified iron deficiency anemia type doxepin (SINEQUAN) 10 Take 1 capsule (10 30 capsule 5 10/01/2018 MG CAPS mg) by mouth every capsuleIndications: night at bedtime Insomnia, unspecified type allopurinol Take 1 tablet (100 90 tablet 2 10/01/2018 (ZYLOPRIM) 100 mg mg) by mouth 1 time tabletIndications: per day Acute gout, unspecified cause, unspecified site alendronate (FOSAMAX) TAKE 1 TABLET BY 12 tablet 0 10/01/2018 70 mg MOUTH 1 TIME A tabletIndications: WEEK. TAKE 1/2 HOUR Infiltrating ductal BEFORE THE carcinoma of right FIRSTFOOD OF DAY. breast (HCC) DO NOT LIE DOWN FOR 30 MINUTES AFTER TAKING. albuterol HFA Inhale 2 puffs 3 Inhaler 4 10/01/2018 (PROVENTIL,PROAIR,ADELAIDA orally every 4 to 6 TOLIN) 108 (90 Base) hours as needed for MCG/ACT shortness of breath inhalerIndications: (allergies) Shake Mild intermittent well before using. asthma without complication propranolol (INDERAL) Take 1 tablet (20 90 tablet 4 10/01/2018 10/06/2019 20 mg mg) by mouth 1 time tabletIndications: per day Atrial fibrillation, unspecified type (HCC) zolpidem (AMBIEN) 10 TAKE 1/2 TABLET BY 90 tablet 0 09/30/2018 mg tabletIndications: MOUTH AT BEDTIME Insomnia, unspecified type misc. devices 1 Units as needed 1 each 11 09/10/2018 KITIndications: (Wear bras and Breast cancer (HCC) prosthesis as needed) anastrozole TAKE 1 TABLET BY 90 tablet 3 08/26/2018 (ARIMIDEX) 1 MG MOUTH ONCE DAILY tabletIndications: Infiltrating ductal carcinoma of right breast (HCC), Malignant neoplasm of upper-outer quadrant of left breast in female, estrogen receptor positive (HCC) COUMADIN 5 MG 7.5 mg on M, W, F; 108 tablet 4 06/18/2018 tabletIndications: 5 mg all other days S/P mitral valve Weekly total 42.5 replacement with mg metallic valve MODI PO Take 1 capsule by 0 mouth 1 time per day clindamycin (CLEOCIN) Take 2 capsules 2 capsule 4 03/14/2017 150 mg capsule (300 mg) by mouth as needed (prior to dental appointments) cetirizine (ZYRTEC) Take 1 tablet (10 30 tablet 11 03/14/2017 10 mg tablet mg) by mouth 1 time per day calcium carbonate Take 500 mg by 0 (OSCAL 500) 500 mg mouth 1 time a day tablet with breakfast misc. devices 1 Units as needed 1 each 1 09/29/2014 KITIndications: (chemotherapy wig). Breast cancer, left (HCC) vitamin D3, Take 1 tablet by 30 tablet 11 01/28/2014 cholecalciferol, 1000 mouth 1 time per unit tablet day. vitamin K 100 MCG Take 100 mcg by 0 TABS tablet mouth 1 time per day. To stabilize dietary intake of vitamin K while on coumadin documented as of this encounter Progress Notes Ton Simpson, [facility] - 11/11/2018 6:13 AM CDT Warfarin Progress Note Ms. Zavala continues on Warfarin Therapy per pharmacy protocol for afib/mitral valve replacement, desired goal INR is 2.5-3.5. Reversal agents given (dose, route, timing): Clinically significant drug interactions: Vit k 100mcg daily Labs: Protime Date/Time Value Ref Range Status 11/11/2018 05:50 AM 29.7 (H) 12.0 - 14.5 secs Final 11/10/2018 06:34 AM 31.7 (H) 12.0 - 14.5 secs Final 11/09/2018 09:46 AM 28.0 (H) 12.0 - 14.5 secs Final 11/18/2013 11:45 AM 36.4 Final 11/04/2013 27.7 (H) Final INR Date/Time Value Ref Range Status 11/11/2018 05:50 AM 2.8 2.0 - 3.5 Final 11/10/2018 06:34 AM 3.0 2.0 - 3.5 Final 11/09/2018 09:46 AM 2.6 2.0 - 3.5 Final 03/02/2017 3.00 Final 02/16/2017 2.10 Final 01/18/2017 3.00 Final RX Warfarin Administered (From admission, onward) Start Stop Route Frequency Ordered 11/10/18 1600 warfarin (COUMADIN) tablet 5 mg 11/10 1500 PO Warfarin one time dose 11/10/18 0741 11/09/18 1600 warfarin (COUMADIN) tablet 5 mg 11/09 1500 PO Warfarin one time dose 11/09/18 1128 11/07/18 1600 warfarin (COUMADIN) tablet 7.5 mg Status: Discontinued & nbsp; 11/09 1448 PO Daily (Warfarin) 11/07/18 0823 11/06/18 1600 warfarin (COUMADIN) tablet 7.5 mg 11/06 1543 PO Warfarin one time dose 11/06/18 0656 11/05/18 1620 warfarin (COUMADIN) tablet 7.5 mg (warfarin (COUMADIN) already given pre-op start tomorrow) 11/05 1640 PO Warfarin one time dose 11/05/18 1413 Plan: Warfarin: 7.5 mg today. Current recommendation for warfarin dose upon discharge: resume home dosing regimen Pharmacy will continue to monitor per the anticoagulation policy. Ton Simpson RPh Yevgeniy Bills MD - 11/10/2018 8:58 AM CDT [facility] Daily Progress Note Ms.Paulette Lila Zavala is a 68yr woman who we were consulted for medical management. Assessment/Plan: 1. Right knee osteoarthritis:S/Prightsided TKAby Dr. Delgado.pain is reasonably well controlled. Nausea is improved today. Continue scheduled tylenol andminimize opiates for pain control.Had a large BMfollowed by liquid stools. Monitor need for stool softeners.Progressingvery slowly with therapyand willrequire TCU on discharge, likelyMonday per surgery. CM aware. Anticoagulation with heparin drip bridge to coumadin. stop heparin bridge today as INR therapeutic for 2 checks. 2. Acute blood loss anemia:baseline hemoglobin around 12.5. Down to7.5. BP has been stableat this time so we will continue to monitor hemoglobin for stability with her elevated risk of post surgical bleeding due to the mechanical valve. 3. Mechanical mitral valve: on coumadin with goal of 2.5-3.5 at home. Off coumadin for several days and bridged with lovenoxprior to surgery.Last dose of lovenox morning of 11/04.Started onheparindripbridge and restarted coumadinafter surgery.stop heparin today. 4. Thrombocytopenia: baseline appears to be around 120-150. Down to a carl of 78but stable. Likely consumptive. 5. Atrial fibrillation: rate controlled with propranolol. Continue with holding parameters. On coumadin at home for A. Fib and Mechanical mitral valve. heparin bridge to coumadin. Stop heparin today due to last 2 INR > 2.5. 6. Chronic diastolic heart failure: She has a hx of chronic diastolic heart failure and is on lasix and spironolactone at home.holding both and monitor daily weightsand respiratory status closely. 7. Essential hypertension: She has a hx of HTN and is on lasix, spironolactone, and propranolol at home. BP is mildly low after surgeryand oral intakewas alsodown so weare holdingher home lasix and spironolactone.BP has been stable as well as her breathing.possible restart tomorrow if pressures continue to stabilize. 8. Hyperlipidemia: continue home lipitor. 9. Gout: continue home allopurinol. 10. Insomnia: continue home doxepin and trazodone. 11. VTE: coumadin. D/c heparin drip now that INR therapeutic for 2 checks. 12. Dispo:[facility], likely Sunday. Subjective: Sitting up in the chair. Mild nausea when lab was attempting to draw her blood but otherwise she has been eating more and feeling good. Denies lightheadedness on standing, SOB, cough, fever, chills, or vomiting. Objective: Vital signs in last 24 hours: Vitals: 11/09/18 2009 11/09/18 2329 11/10/18 0330 11/10/18 0721 BP: 140/66 117/60 125/69 141/65 Pulse: 73 63 78 76 Resp: 16 16 16 16 Temp: 97.8 F (36.6 C) 97.2 F (36.2 C) 97.6 F (36.4 C) SpO2: 100% 100% 100% 100% Weight: Height: Weight change: Intake/Output Summary (Last 24 hours) at 11/10/2018 0859 Last data filed at 11/10/2018 0600 Gross per 24 hour Intake 250 ml Output 2250 ml Net -2000 ml Vitals reviewed. General: sitting up in the chair,NAD, tremulous voice HEENT: PERRL, EOMI, no scleral icterus Cardiac: RRR,metallic click audible,no rubs, murmurs or gallops Pulm: clear to auscultation bilaterally, no wheezes, rales, or rhonchi Abd: soft, nontender, nondistended, BS present Ext: warm and well perfused,right knee dressingwith strike through bleeding on the RAYA wrap unchanged.PT and DP pulses intact bilaterally with brisk cap refill. Neuro: alert and oriented X3, cranial nerves II-XII grossly intact, strength and sensation to light touch equal in bilateral upper and lower extremities, coarse upper extremity tremor noted that improves with movement. Lab Results: Basic Metabolic Panel: Recent Labs 11/09/18 0946 11/10/18 0634 NA 131* 135 POTASSIUM 4.1 3.9 CL 101 103 CO2 22 23 BUN 14 11 CREATSERUM 0.74 0.72 CA 7.7* 8.4* MAGNESIUM 1.9 -- PHOSPHORUS 2.3* -- Recent Labs 11/09/18 0946 11/10/18 0634 GLUCOSE 114* 99 CBC: Recent Labs 11/09/18 0946 11/10/18 0634 WBC 5.6 5.3 HEMOGLOBIN 7.8* 7.5* HEMATOCRIT 22.3* 22.1* MCV 97.0 100.0* PLTCOUNT 74* 89* Coagulation: Recent Labs 11/09/18 0946 11/09/18 2330 11/10/18 0634 PT 28.0* -- 31.7* INR 2.6 -- 3.0 APTT 65* 69* >150* Medications: I have reviewed her medications. Current Facility-Administered Medications Medication Dose Route Frequency warfarin (COUMADIN) tablet 5 mg 5 mg Oral Warfarin 1 time dose ondansetron (ZOFRAN) tablet 4 mg 4 mg Oral Every 4 hours prn acetaminophen (TYLENOL) tablet 1,000 mg 1,000 mg Oral 3 times a day HYDROmorphone (DILAUDID) tablet 2 mg 2 mg Oral Every 4 hours prn loperamide (IMODIUM) capsule 2 mg 2 mg Oral Every 1 hour prn trolamine salicylate (ASPERCREME) 10 % cream Apply externally 4 times a day prn allopurinol (ZYLOPRIM) tablet 100 mg 100 mg Oral daily anastrozole (ARIMIDEX) tablet 1 mg 1 mg Oral daily atorvaSTATin (LIPITOR) tablet 20 mg 20 mg Oral at bedtime cetirizine (zyrTEC) tablet 10 mg 10 mg Oral daily doxepin (SINEquan) capsule 10 mg 10 mg Oral at bedtime propranolol (INDERAL) tablet 20 mg 20 mg Oral daily traZODone (DESYREL) tablet 100 mg 100 mg Oral at bedtime phytonadione (vitamin K) tablet 100 mcg 100 mcg Oral daily sodium chloride 0.9% flush (adult) 10 mL 10 mL IV 2 times a day and prn docusate sodium (COLACE) capsule 100 mg 100 mg Oral 2 times a day magnesium hydroxide (MILK OF MAGNESIA) oral suspension 30 mL 30 mL Oral 2 times a day prn bisacodyl (DULCOLAX) enteric coated tablet 5 mg 5 mg Oral 2 times a day prn bisacodyl (DULCOLAX) suppository 10 mg 10 mg Rectal 1 time a day prn benzocaine-menthol (CEPACOL w/ BENZOCAINE) lozenge 1 lozenge 1 lozenge Mouth/Throat Every 4 hours prn sodium chloride 0.9% prefilled 10 mL syringe (Materials Management Item) 20 mL 20 mL IV Daily And sodium chloride 0.9% prefilled 10 mL syringe (Materials Management Item) 20 mL 20 mL IV As often as necessary prn And hEParin 100 units/ mL injection for heplock FLUSH 500 Units IV Daily And hEParin 100 units/ mL injection for heplock FLUSH 500 Units IV As often as necessary prn .Anticoagulation (WARFARIN) therapy nursing reminder 1 each Does not apply Reminder ferrous sulfate (65 mg FE per 325 mg tablet) tablet 325 mg 325 mg Oral 3 times a day vitamin C (ascorbic acid) tablet 500 mg 500 mg Oral 3 times a day Bryan Gillette MD [facility] Pager: [phone] 9: 11 AM Patrick Strong PA - 11/10/2018 7:46 AM CDT Orthopedic Daily Progress note: S: 5 Days Post-Op, Procedure(s): RIGHT TOTAL KNEE ARTHROPLASTY O: A/O, Pain controlled, Incision C/D/I, Denies CP, SOB, F/C, N/V Positive DF, PF and EHL function, Sensation: intact to light touch in foot Current Vital Signs Temp: 97.6 F (36.4 C) BP: 141/65 Pulse: 76 O2 Device: Room Air O2 Flow Rate (L/min): 2 l/min Resp: 16 Pain Ratin (out of 10) Weight: 90.1 kg (198 lb 9.6 oz) SpO2: 100 % Pain Ratin Pain Location: Knee Specify: Right Pain character: Aches Intake/Output Summary (Last 24 hours) at 11/10/2018 0746 Last data filed at 11/10/2018 0600 Gross per 24 hour Intake 325 ml Output 2250 ml Net -1925 ml Lab Results Component Value Date HEMOGLOBIN 7.5 (L) 11/10/2018 Lab Results Component Value Date NA 135 11/10/2018 Lab Results Component Value Date INR 3.0 11/10/2018 PT 31.7 (H) 11/10/2018 Lab Results Component Value Date BUN 11 11/10/2018 Lab Results Component Value Date CREATSERUM 0.72 11/10/2018 Assessment/Plan: 1. 5 Days Post-Op, Procedure(s): 2. RIGHT TOTAL KNEE ARTHROPLASTY 3. PT/OT: Out of bed, weight bearing status: WBAT Right lower 4. DVT prophylaxis: coumadin 5. Disposition/Planning: TCU on Sunday. ORTHO D/C orders completed. Ton Castanon, [facility] - 11/10/2018 7:46 AM CDT Warfarin Progress Note Ms. Zavala continues on Warfarin Therapy per pharmacy protocol for afib/mitral valve replacement, desired goal INR is 2.5-3.5. Reversal agents given (dose, route, timing): Clinically significant drug interactions: Vit k, heparin Labs: Protime Date/Time Value Ref Range Status 11/10/2018 06:34 AM 31.7 (H) 12.0 - 14.5 secs Final 11/09/2018 09:46 AM 28.0 (H) 12.0 - 14.5 secs Final 11/08/2018 06:17 AM 22.2 (H) 12.0 - 14.5 secs Final 11/18/2013 11:45 AM 36.4 Final 11/04/2013 27.7 (H) Final INR Date/Time Value Ref Range Status 11/10/2018 06:34 AM 3.0 2.0 - 3.5 Final 11/09/2018 09:46 AM 2.6 2.0 - 3.5 Final 11/08/2018 06:17 AM 1.9 (L) 2.0 - 3.5 Final 03/02/2017 3.00 Final 02/16/2017 2.10 Final 01/18/2017 3.00 Final RX Warfarin Administered (From admission, onward) Start Stop Route Frequency Ordered 11/09/18 1600 warfarin (COUMADIN) tablet 5 mg 11/09 1500 PO Warfarin one time dose 11/09/18 1128 11/07/18 1600 warfarin (COUMADIN) tablet 7.5 mg Status: Discontinued & nbsp; 11/09 1448 PO Daily (Warfarin) 11/07/18 0823 11/06/18 1600 warfarin (COUMADIN) tablet 7.5 mg 11/06 1543 PO Warfarin one time dose 11/06/18 0656 11/05/18 1620 warfarin (COUMADIN) tablet 7.5 mg (warfarin (COUMADIN) already given pre-op start tomorrow) 11/05 1640 PO Warfarin one time dose 11/05/18 1413 Plan: Warfarin: 5 mg today. Current recommendation for warfarin dose upon discharge: resume home dosing regimen Pharmacy will continue to monitor per the anticoagulation policy. Ton Simpson RPh Yevgeniy Bills MD - 11/09/2018 1:52 PM CDT [facility] Daily Progress Note Ms.Paulette Lila Zavala is a 68yr woman who we were consulted for medical management. Assessment/Plan: 1. Right knee osteoarthritis:S/Prightsided TKAby Dr. Delgado.pain is reasonably well controlled. Nausea is improved today. Continue scheduled tylenol and minimize opiates for pain control. Had a large BMfollowed by liquid stools. No stools today yet. Monitor need for stool softeners. Progressing very slowly with therapyand willrequire TCU on discharge, likely Sunday per surgery. CM aware. Anticoagulation with heparin drip bridge to coumadin. INR 2.6 recheck in the AM and if stable stop heparin. 2. Acute blood loss anemia:baseline hemoglobin around 12.5. Down to7.8. BP has been stable at this time so we will continue to monitor hemoglobin for stability with her elevated risk of post surgical bleeding due to the mechanical valve. Recheck sodium in the AM. 3. Mechanical mitral valve: on coumadin with goal of 2.5-3.5 at home. Off coumadin for several days and bridged with lovenoxprior to surgery.Last dose of lovenox morning of 11/04.Started onheparindripbridge and restart coumadinafter surgery.monitor bleeding carefully. 4. Thrombocytopenia: baseline appears to be around 120-150. Down to 78 but stable. Low risk of HIIT, most likely consumptive. 5. Atrial fibrillation: rate controlled with propranolol. Continue with holding parameters. On coumadin at home for A. Fib and Mechanical mitral valve. Coumadin restarted with heparin bridge. 6. Chronic diastolic heart failure: She has a hx of chronic diastolic heart failure and is on lasix and spironolactone at home.holding both and monitor daily weightsand respiratory status closely. 7. Essential hypertension: She has a hx of HTN and is on lasix, spironolactone, and propranolol at home. BP is mildly low after surgeryoral intakewas alsodown so weheldher home lasix and spironolactone.BP has been stable as well as her breathing. monitor oral intake closely. 8. Hyperlipidemia: continue home lipitor. 9. Gout: continue home allopurinol. 10. Insomnia: continue home doxepin and trazodone. 11. VTE: Heparin drip to coumadin 12. Dispo:[facility], likely Sunday. Subjective: Pain better controlled. States she feels cold today but denies nausea, vomiting , SOB, cough, fever,or chills. No lightheadedness on standing. Objective: Vital signs in last 24 hours: Vitals: 11/09/18 0305 11/09/18 0705 11/09/18 0728 11/09/18 1206 BP: 126/55 131/61 117/53 Pulse: 72 75 76 Resp: 16 16 16 Temp: 97.7 F (36.5 C) 97.3 F (36.3 C) 97.6 F (36.4 C) SpO2: 100% 98% 100% Weight: 90.1 kg (198 lb 9.6 oz) Height: Weight change: Intake/Output Summary (Last 24 hours) at 11/09/2018 1352 Last data filed at 11/09/2018 0820 Gross per 24 hour Intake 1512 ml Output 1650 ml Net -138 ml Vitals reviewed. General: resting in bed, NAD, tremulous voice HEENT: PERRL, EOMI, no scleral icterus Cardiac: RRR,metallic click audible,no rubs, murmurs or gallops Pulm: clear to auscultation bilaterally, no wheezes, rales, or rhonchi Abd: soft, nontender, nondistended, BS present Ext: warm and well perfused,right knee dressingwith strike through bleeding on the RAYA wrap unchanged from yesterday. PT and DP pulses intact bilaterally with brisk cap refill. Neuro: alert and oriented X3, cranial nerves II-XII grossly intact, strength and sensation to light touch equal in bilateral upper and lower extremities, coarse upper extremity tremor noted that improves with movement. Lab Results: Basic Metabolic Panel: Recent Labs 11/09/18 0946 NA 131* POTASSIUM 4.1 CL 101 CO2 22 BUN 14 CREATSERUM 0.74 CA 7.7* MAGNESIUM 1.9 PHOSPHORUS 2.3* Recent Labs 11/09/18 0946 GLUCOSE 114* CBC: Recent Labs 11/08/18 0617 11/09/18 0946 WBC 7.5 5.6 HEMOGLOBIN 9.0* 7.8* HEMATOCRIT 26.3* 22.3* MCV 98.9* 97.0 PLTCOUNT 71* 74* Coagulation: Recent Labs 11/08/18 0617 11/09/184 11/09/18 0946 PT 22.2* -- 28.0* INR 1.9* -- 2.6 APTT 88* 145* 65* Medications: I have reviewed her medications. Current Facility-Administered Medications Medication Dose Route Frequency warfarin (COUMADIN) tablet 5 mg 5 mg Oral Warfarin 1 time dose ondansetron (ZOFRAN) tablet 4 mg 4 mg Oral Every 4 hours prn warfarin (COUMADIN) tablet 7.5 mg 7.5 mg Oral Daily (Warfarin) acetaminophen (TYLENOL) tablet 1,000 mg 1,000 mg Oral 3 times a day HYDROmorphone (DILAUDID) tablet 2 mg 2 mg Oral Every 4 hours prn loperamide (IMODIUM) capsule 2 mg 2 mg Oral Every 1 hour prn trolamine salicylate (ASPERCREME) 10 % cream Apply externally 4 times a day prn allopurinol (ZYLOPRIM) tablet 100 mg 100 mg Oral daily anastrozole (ARIMIDEX) tablet 1 mg 1 mg Oral daily atorvaSTATin (LIPITOR) tablet 20 mg 20 mg Oral at bedtime cetirizine (zyrTEC) tablet 10 mg 10 mg Oral daily doxepin (SINEquan) capsule 10 mg 10 mg Oral at bedtime propranolol (INDERAL) tablet 20 mg 20 mg Oral daily traZODone (DESYREL) tablet 100 mg 100 mg Oral at bedtime phytonadione (vitamin K) tablet 100 mcg 100 mcg Oral daily sodium chloride 0.9% flush (adult) 10 mL 10 mL IV 2 times a day and prn docusate sodium (COLACE) capsule 100 mg 100 mg Oral 2 times a day magnesium hydroxide (MILK OF MAGNESIA) oral suspension 30 mL 30 mL Oral 2 times a day prn bisacodyl (DULCOLAX) enteric coated tablet 5 mg 5 mg Oral 2 times a day prn bisacodyl (DULCOLAX) suppository 10 mg 10 mg Rectal 1 time a day prn benzocaine-menthol (CEPACOL w/ BENZOCAINE) lozenge 1 lozenge 1 lozenge Mouth/Throat Every 4 hours prn hEParin (50 units/mL) in D5W premixed IV solution (STANDARD-weight based) 0 -50 Units/kg/hr IV Titrate heparin (porcine) (5000 units/1 mL) IV dose 2,900 Units 35 Units/kg IV PRN per parameter Or heparin (porcine) (5000 units/1 mL) IV dose 5,700 Units 70 Units/kg IV PRN per parameter sodium chloride 0.9% prefilled 10 mL syringe (Materials Management Item) 20 mL 20 mL IV Daily And sodium chloride 0.9% prefilled 10 mL syringe (Materials Management Item) 20 mL 20 mL IV As often as necessary prn And hEParin 100 units/ mL injection for heplock FLUSH 500 Units IV Daily And hEParin 100 units/ mL injection for heplock FLUSH 500 Units IV As often as necessary prn .Anticoagulation (WARFARIN) therapy nursing reminder 1 each Does not apply Reminder ferrous sulfate (65 mg FE per 325 mg tablet) tablet 325 mg 325 mg Oral 3 times a day vitamin C (ascorbic acid) tablet 500 mg 500 mg Oral 3 times a day Bryan Gillette MD [facility] Pager: [phone] 2: 03 PM Ton Castanon [facility] - 11/09/2018 11:29 AM CDT Warfarin Progress Note Ms. Zavala continues on Warfarin Therapy per pharmacy protocol for afib/mitral valve replacement, desired goal INR is 2.5-3.5. Reversal agents given (dose, route, timing): Clinically significant drug interactions: Vit k and heparin Labs: Protime Date/Time Value Ref Range Status 11/09/2018 09:46 AM 28.0 (H) 12.0 - 14.5 secs Final 11/08/2018 06:17 AM 22.2 (H) 12.0 - 14.5 secs Final 11/07/2018 05:59 AM 18.7 (H) 12.0 - 14.5 secs Final 11/18/2013 11:45 AM 36.4 Final 11/04/2013 27.7 (H) Final INR Date/Time Value Ref Range Status 11/09/2018 09:46 AM 2.6 2.0 - 3.5 Final 11/08/2018 06:17 AM 1.9 (L) 2.0 - 3.5 Final 11/07/2018 05:59 AM 1.6 (L) 2.0 - 3.5 Final 03/02/2017 3.00 Final 02/16/2017 2.10 Final 01/18/2017 3.00 Final RX Warfarin Administered (From admission, onward) Start Stop Route Frequency Ordered 11/06/18 1600 warfarin (COUMADIN) tablet 7.5 mg 11/06 1543 PO Warfarin one time dose 11/06/18 0656 11/05/18 1620 warfarin (COUMADIN) tablet 7.5 mg (warfarin (COUMADIN) already given pre-op start tomorrow) 11/05 1640 PO Warfarin one time dose 11/05/18 1413 Plan: Warfarin: 5 mg today. Current recommendation for warfarin dose upon discharge: resume home dosing Pharmacy will continue to monitor per the anticoagulation policy. Ton Simpson RPh Gracie Rdz PA - 11/09/2018 9:44 AM CDT Orthopedic Progress Note Caren Zavala is a 68yr old female admitted on 11/05/2018 6:23 AM. S: stable, pain has been controlled on tylenol. Transitioning to coumadin with her mechanical mitral valve. Progressing with therapies { Lab Results Component Value Date HEMOGLOBIN 9.0 (L) 11/08/2018 O: Vital Signs: Temp: 97.3 F (36.3 C) | BP: 131/61 | Pulse: 75 | Resp: 16 | Pain Ratin (out of 10) | Weight: 90.1 kg (198 lb 9.6 oz) | O2 Device: Room Air O2 Flow Rate (L/min): 2 l/min | SpO2: 98 % Maximum Temperatures (last 24 hours) Temperature Maximum Max Temp 97.7 F (36.5 C) Exam: alert, oriented Wound has some bruising, swelling, no erythema No calf pain, able to DF/PF well, distal NVI A: 4 Days Post-Op Status Post: Procedure(s): RIGHT TOTAL KNEE ARTHROPLASTY P: continue medical management. Plan for SNF on Sunday Gracie Belcher PA-C Ryan Lee MD - 11/08/2018 2:58 PM CDTPost op day three Some nausea on oxycodone not dilaudid hgb 9, plts 71 On coumadin with vit k to stabilize, estevez=rossana slow to gain therapeutic inr, today 1.9, goal 2.5 incision intact per incisional ecchymosis Consider discharge when off heparin Fragile tissues medical status Discussed follow up and concerns Yevgeniy Bills MD - 11/08/2018 2:24 PM CDT [facility] Daily Progress Note Ms.Paulette Lila Zavala is a 68yr woman who we were consulted for medical management. Assessment/Plan: 1. Right knee osteoarthritis:S/Prightsided TKAby Dr. Delgado.pain is reasonably well controlled. Nausea is improved today. Continue scheduled tylenol and minimize opiates for pain control. Had a large BM and now having some liquid stools so hold off stool softeners. Progressing with therapy but will require TCU on discharge, likely Sunday per surgery. CM aware. Anticoagulation withheparin drip bridge to coumadin. 2. Acute blood loss anemia:baseline hemoglobin around 12.5. Down to 9.0. BP has been stable at this time so we will continue to monitor hemoglobin for stability with her elevated risk of post surgical bleeding due to the mechanical valve. 3. Mechanical mitral valve: on coumadin with goal of 2.5-3.5 at home. Off coumadin for several days and bridged with lovenox prior to surgery. Last dose of lovenox morning of 11/04.Started onheparindripbridge and restart coumadinafter surgery. monitor bleeding carefully. 4. Thrombocytopenia: baseline appears to be around 120-150. Down to 78 but stable today at 71. Lowrisk of HIIT, most likely consumptive. 5. Atrial fibrillation: rate controlled with propranolol. Continue with holding parameters. On coumadin at home for A. Fib and Mechanical mitral valve. Coumadin restarted with heparin bridge. 6. Chronic diastolic heart failure: She has a hx of chronic diastolic heart failure and is on lasix and spironolactone at home.[place] and monitor daily weights and respiratory status. 7. Essential hypertension: She has a hx of HTN and is on lasix, spironolactone, and propranolol at home. BP is mildly low after surgery oral intake was also down so weheldher home lasix and spironolactone. BP has been stable as well as her breathing. 8. Hyperlipidemia: continue home lipitor. 9. Gout: continue home allopurinol. 10. Insomnia: continue home doxepin and trazodone. 11. VTE: Heparin drip to coumadin 12. Dispo: [facility], likely Sunday. Subjective: No lightheadedness on standing today and her nausea is improved. Having early satiety when eating and appetite is down. Several liquid BMs today. Denies vomiting, SOB, cough, fever, or chills. Objective: Vital signs in last 24 hours: Vitals: 11/08/18 0300 11/08/18 0643 11/08/18 0720 11/08/18 1244 BP: 116/54 108/57 125/57 Pulse: 75 66 64 Resp: 16 18 16 Temp: 98.3 F (36.8 C) 98.1 F (36.7 C) 97.7 F (36.5 C) SpO2: 97% 97% 97% Weight: 92.5 kg (203 lb 14.8 oz) Height: Weight change: Intake/Output Summary (Last 24 hours) at 11/08/2018 1424 Last data filed at 11/08/2018 1244 Gross per 24 hour Intake 2655.09 ml Output 650 ml Net 2005.09 ml Vitals reviewed. General: resting in bed, NAD, tremulous voice HEENT: PERRL, EOMI, no scleral icterus Cardiac: RRR,metallic click audible,no rubs, murmurs or gallops Pulm: clear to auscultation bilaterally, no wheezes, rales, or rhonchi Abd: soft, nontender, nondistended, BS present Ext: warm and well perfused,right knee dressing with strike through bleeding on the RAYA wrap unchanged from yesterday. PT and DP pulses intact bilaterally with brisk cap refill. Neuro: alert and oriented X3, cranial nerves II-XII grossly intact, strength and sensation to light touch equal in bilateral upper and lower extremities, coarse upper extremity tremor noted that improves with movement. Lab Results: Basic Metabolic Panel: Recent Labs 11/06/18 0555 NA 131* POTASSIUM 4.1 CL 99 CO2 23 BUN 23* CREATSERUM 0.88 CA 8.2* MAGNESIUM 1.7* Recent Labs 11/06/18 0555 GLUCOSE 148* CBC: Recent Labs 11/07/18 1551 11/08/18 0617 WBC 9.3 7.5 HEMOGLOBIN 10.1* 9.0* HEMATOCRIT 30.0* 26.3* MCV 99.7* 98.9* PLTCOUNT 87* 71* Coagulation: Recent Labs 11/07/18 0559 11/08/18 0617 11/08/18 1335 PT 18.7* 22.2* -- INR 1.6* 1.9* -- APTT >150* 88* 70* Medications: I have reviewed her medications. Current Facility-Administered Medications Medication Dose Route Frequency ondansetron (ZOFRAN) tablet 4 mg 4 mg Oral Every 4 hours prn warfarin (COUMADIN) tablet 7.5 mg 7.5 mg Oral Daily (Warfarin) acetaminophen (TYLENOL) tablet 1,000 mg 1,000 mg Oral 3 times a day HYDROmorphone (DILAUDID) tablet 2 mg 2 mg Oral Every 4 hours prn loperamide (IMODIUM) capsule 2 mg 2 mg Oral Every 1 hour prn trolamine salicylate (ASPERCREME) 10 % cream Apply externally 4 times a day prn allopurinol (ZYLOPRIM) tablet 100 mg 100 mg Oral daily anastrozole (ARIMIDEX) tablet 1 mg 1 mg Oral daily atorvaSTATin (LIPITOR) tablet 20 mg 20 mg Oral at bedtime cetirizine (zyrTEC) tablet 10 mg 10 mg Oral daily doxepin (SINEquan) capsule 10 mg 10 mg Oral at bedtime propranolol (INDERAL) tablet 20 mg 20 mg Oral daily traZODone (DESYREL) tablet 100 mg 100 mg Oral at bedtime phytonadione (vitamin K) tablet 100 mcg 100 mcg Oral daily sodium chloride 0.9% flush (adult) 10 mL 10 mL IV 2 times a day and prn docusate sodium (COLACE) capsule 100 mg 100 mg Oral 2 times a day magnesium hydroxide (MILK OF MAGNESIA) oral suspension 30 mL 30 mL Oral 2 times a day prn bisacodyl (DULCOLAX) enteric coated tablet 5 mg 5 mg Oral 2 times a day prn bisacodyl (DULCOLAX) suppository 10 mg 10 mg Rectal 1 time a day prn benzocaine-menthol (CEPACOL w/ BENZOCAINE) lozenge 1 lozenge 1 lozenge Mouth/Throat Every 4 hours prn hEParin (50 units/mL) in D5W premixed IV solution (STANDARD-weight based) 0 -50 Units/kg/hr IV Titrate heparin (porcine) (5000 units/1 mL) IV dose 2,900 Units 35 Units/kg IV PRN per parameter Or heparin (porcine) (5000 units/1 mL) IV dose 5,700 Units 70 Units/kg IV PRN per parameter sodium chloride 0.9% prefilled 10 mL syringe (Materials Management Item) 20 mL 20 mL IV Daily And sodium chloride 0.9% prefilled 10 mL syringe (Materials Management Item) 20 mL 20 mL IV As often as necessary prn And hEParin 100 units/ mL injection for heplock FLUSH 500 Units IV Daily And hEParin 100 units/ mL injection for heplock FLUSH 500 Units IV As often as necessary prn .Anticoagulation (WARFARIN) therapy nursing reminder 1 each Does not apply Reminder ferrous sulfate (65 mg FE per 325 mg tablet) tablet 325 mg 325 mg Oral 3 times a day vitamin C (ascorbic acid) tablet 500 mg 500 mg Oral 3 times a day Bryan Gillette MD [facility] Pager: [phone] 2: 55 PM Irene Rivas PA - 11/08/2018 7:24 AM CDT ORTHO progress note. Caren Zavala is a 68yr old female admitted on 11/05/2018 6:23 AM 3 Days Post-Op, patient of Ryan Delgado MD Status Post: Procedure(s): RIGHT TOTAL KNEE ARTHROPLASTY Patient doing ok, fair pain control with current meds. Feeling better this morning. She denies nausea today. Lab Results Component Value Date HEMOGLOBIN 9.0 (L) 11/08/2018 Current Vitals: BP 108/57 | Pulse 66 | Temp 98.1 F (36.7 C) | Resp 18 | Ht 1.549 m (5' 1") | Wt 92.5 kg (203 lb 14.8 oz) | SpO2 97% | BMI 38.53 kg/m Dist NVI. Dressing intact. Plan: Continue cares, PT. Plan is for DC to SNF tomorrow. Irene Thompson PA-C Ryan Lee MD - 11/07/2018 2:31 PM CDTPost op day two Sleeping too soundly after dilaudid med change Also emotionally more labile vss hgb 8.5, inr 1.6 on baseline coumadin 7.5 but also vitamin K , apparent to give stable vit klevels On heparin but now plts 78 incision intact, ecchymosis mild drainage Cms intact TKA stable Concern with heparin, low plts , coumadin, poor quality tissue and potential bleeding, will ask heparin dced tomorrow if inr reasonable, has mitral valve Pain control, would try other lesser meds and or lowere dose diluadid Yevgeniy Bills MD - 11/07/2018 12:56 PM CDT [facility] Daily Progress Note Ms.Paulette Lila Zavala is a 68yr woman who we were consulted for medical management. Assessment/Plan: 1. Right knee osteoarthritis:S/Prightsided TKAby Dr. Delgado. pain is reasonably well controlled today. having some nausea today so we will add scheduled tylenol and change oxycodone over to oral dilaudid and monitor nausea and pain control. Had a large BM this morning. Progressing with therapy but will require TCU on discharge, likely Sunday to ensure her hemoglobin is stable. CM aware. Anticoagulation with heparin drip bridge to coumadin. 2. Acute blood loss anemia: baseline hemoglobin around 12.5. Down to 8.5 today with mildly lower BP. Continue to monitor hemoglobin for stability with her elevated risk of post surgical bleeding dueto the mechanical valve. 3. Mechanical mitral valve: on coumadin with goal of 2.5-3.5 at home. Off coumadin for several days and bridged with lovenox prior to surgery. Last dose of lovenox morning of 11/04. Started on heparin drip bridge and restart coumadin after surgery. monitor bleeding carefully. 4. Thrombocytopenia: baseline appears to be around 120-150. Down to 78 today. Likely consumptive but will continue to monitor given her exposure to heparin. 5. Atrial fibrillation: rate controlled with propranolol. Continue with holding parameters. On coumadin at home for A. Fib and Mechanical mitral valve. Coumadin restarted with heparin bridge. 6. Chronic diastolic heart failure: She has a hx of chronic diastolic heart failure and is on lasix and spironolactone at home. Held both and monitor daily weights and respiratory status. 7. Essential hypertension: She has a hx of HTN and is on lasix, spironolactone, and propranolol at home. BP is mildly low after surgery oral intake was also down so we held her home lasix and spironolactone. monitor BP closely with the drop in hemoglobin as well as breathing with her hx of chronic diastolic heart failure. 8. Hyperlipidemia: continue home lipitor. 9. Gout: continue home allopurinol. 10. Insomnia: continue home doxepin and trazodone. 11. VTE: Heparin drip to coumadin 12. Dispo: Will need placement, pending clearance for discharge by therapy and stable hemoglobin, possible tomorrow but more likely Sunday. Subjective: Had some increased nausea and an episode of bowel incontinence this morning. Has not vomited but "just feel crummy" today. Denies SOB, cough, fever, or chills. Pain is partially controlled. Objective: Vital signs in last 24 hours: Vitals: 11/07/18 0040 11/07/18 0345 11/07/18 0926 11/07/18 1152 BP: 114/52 112/62 104/54 97/51 Pulse: 70 70 73 75 Resp: 16 16 16 16 Temp: 97.8 F (36.6 C) 97.4 F (36.3 C) 98.2 F (36.8 C) 98.3 F ( 36.8 C) SpO2: 93% 99% 100% 96% Weight: Height: Weight change: Intake/Output Summary (Last 24 hours) at 11/07/2018 1256 Last data filed at 11/07/2018 0307 Gross per 24 hour Intake 550 ml Output 500 ml Net 50 ml Vitals reviewed. General: sitting up in the chair, NAD, tremulous voice HEENT: PERRL, EOMI, no scleral icterus Cardiac: RRR, metallic click audible, no rubs, murmurs or gallops Pulm: clear to auscultation bilaterally, no wheezes, rales, or rhonchi Abd: soft, nontender, nondistended, BS present Ext: warm and well perfused, right knee dressing with strike through bleeding noted. PT and DP pulses intact bilaterally with brisk cap refill. Neuro: alert and oriented X3, cranial nerves II-XII grossly intact, strength and sensation to light touch equal in bilateral upper and lower extremities, coarse upper extremity tremor noted that improves with movement. Lab Results: Basic Metabolic Panel: Recent Labs 11/05/18 0747 11/06/18 0555 NA -- 131* POTASSIUM 3.4* 4.1 CL -- 99 CO2 -- 23 BUN -- 23* CREATSERUM -- 0.88 CA -- 8.2* MAGNESIUM -- 1.7* Recent Labs 11/06/18 0555 GLUCOSE 148* CBC: Recent Labs 11/06/18 0555 11/07/18 0559 WBC -- 8.8 HEMOGLOBIN 10.4* 8.5* HEMATOCRIT -- 25.3* MCV -- 100.4* PLTCOUNT -- 78* Coagulation: Recent Labs 11/06/18 0555 11/07/18 0559 11/07/18 0733 11/07/18 0916 PT 15.1* 18.7* -- -- INR 1.2* 1.6* -- -- APTT 108* >150* >150* 74* Medications: I have reviewed her medications. Current Facility-Administered Medications Medication Dose Route Frequency warfarin (COUMADIN) tablet 7.5 mg 7.5 mg Oral Daily (Warfarin) acetaminophen (TYLENOL) tablet 1,000 mg 1,000 mg Oral 3 times a day HYDROmorphone (DILAUDID) tablet 2 mg 2 mg Oral Every 4 hours prn HYDROmorphone (DILAUDID) tablet 4 mg 4 mg Oral Every 4 hours prn trolamine salicylate (ASPERCREME) 10 % cream Apply externally 4 times a day prn allopurinol (ZYLOPRIM) tablet 100 mg 100 mg Oral daily anastrozole (ARIMIDEX) tablet 1 mg 1 mg Oral daily atorvaSTATin (LIPITOR) tablet 20 mg 20 mg Oral at bedtime cetirizine (zyrTEC) tablet 10 mg 10 mg Oral daily doxepin (SINEquan) capsule 10 mg 10 mg Oral at bedtime propranolol (INDERAL) tablet 20 mg 20 mg Oral daily traZODone (DESYREL) tablet 100 mg 100 mg Oral at bedtime phytonadione (vitamin K) tablet 100 mcg 100 mcg Oral daily sodium chloride 0.9% flush (adult) 10 mL 10 mL IV 2 times a day and prn docusate sodium (COLACE) capsule 100 mg 100 mg Oral 2 times a day magnesium hydroxide (MILK OF MAGNESIA) oral suspension 30 mL 30 mL Oral 2 times a day prn bisacodyl (DULCOLAX) enteric coated tablet 5 mg 5 mg Oral 2 times a day prn bisacodyl (DULCOLAX) suppository 10 mg 10 mg Rectal 1 time a day prn ondansetron (ZOFRAN) injection solution 4 mg 4 mg IV Every 4 hours prn benzocaine-menthol (CEPACOL w/ BENZOCAINE) lozenge 1 lozenge 1 lozenge Mouth/Throat Every 4 hours prn hEParin (50 units/mL) in D5W premixed IV solution (STANDARD-weight based) 0 -50 Units/kg/hr IV Titrate heparin (porcine) (5000 units/1 mL) IV dose 2,900 Units 35 Units/kg IV PRN per parameter Or heparin (porcine) (5000 units/1 mL) IV dose 5,700 Units 70 Units/kg IV PRN per parameter sodium chloride 0.9% prefilled 10 mL syringe (Materials Management Item) 20 mL 20 mL IV Daily And sodium chloride 0.9% prefilled 10 mL syringe (Materials Management Item) 20 mL 20 mL IV As often as necessary prn And hEParin 100 units/ mL injection for heplock FLUSH 500 Units IV Daily And hEParin 100 units/ mL injection for heplock FLUSH 500 Units IV As often as necessary prn .Anticoagulation (WARFARIN) therapy nursing reminder 1 each Does not apply Reminder ferrous sulfate (65 mg FE per 325 mg tablet) tablet 325 mg 325 mg Oral 3 times a day vitamin C (ascorbic acid) tablet 500 mg 500 mg Oral 3 times a day Bryan Gillette MD [facility] Pager: [phone] 1: 20 PM CDTPYevgeniy becker MD - 11/06/2018 11:34 AM CDT [facility]ist Daily Progress Note Ms.Paulette Lila Zavala is a 68yr woman who we were consulted for medical management. Assessment/Plan: 1. Right knee osteoarthritis: S/P right sided TKA by Dr. Delgado. pain is well controlled today. She is passing gas but no BM yet. Tolerating her diet at this time. Progressing with therapy today and will likely require TCU on discharge. CM aware. Anticoagulation with heparin drip bridge to coumadin. 2. Acute blood loss anemia: baseline hemoglobin around 12.5. Down to 10.4 this morning after surgery. Continue to monitor hemoglobin for stability with her elevated risk of post surgical bleeding due to the mechanical valve. 3. Mechanical mitral valve: on coumadin with goal of 2.5-3.5 at home. Has been off coumadin for several days and bridged with lovenox. Last dose of lovenox morning of 11/04. Started on heparin drip bridge and restart coumadin after surgery. Monitor for stable hemoglobin and therapeutic INR. 4. Atrial fibrillation: rate controlled with propranolol. Continue with holding parameters. On coumadin at home for A. Fib and Mechanical mitral valve. Coumadin restarted with heparin bridge. 5. Chronic diastolic heart failure: She has a hx of chronic diastolic heart failure and is on lasix and spironolactone at home. Held both for now and monitor daily weights help guide when to restart her medications. 6. Essential hypertension: She has a hx of HTN and is on lasix, spironolactone, and propranolol at home. BP is mildly low at this time and her oral intake is down so we held her home lasix and spironolactone. Monitor oral intake and BP today. Decrease IVF to 50 ml/hr for now and consider stopping later today if her intake is good. 7. Hyperlipidemia: continue home lipitor. 8. Gout: continue home allopurinol. 9. Insomnia: continue home doxepin and trazodone. 10. VTE: Heparin drip to coumadin 11. Dispo: likely will need placement, pending clearance for discharge by therapy and stable hemoglobin. Subjective: States she is doing well today. Pain is well controlled today and she was up with therapy today but"didn't make it very far." States that her surgical leg feels like it is weak and going to give out. Denies nausea, vomiting, chest pain, SOB, or cough. Passing gas but no BM yet. Denies lightheadedness on standing. Objective: Vital signs in last 24 hours: Vitals: 11/05/18 2310 11/06/18 0450 11/06/18 0647 11/06/18 0925 BP: 107/59 108/62 101/74 Pulse: 64 68 53 Resp: 16 16 16 Temp: 97.9 F (36.6 C) 97.8 F (36.6 C) 97.6 F (36.4 C) SpO2: 97% 98% 99% Weight: 88.2 kg (194 lb 7.1 oz) Height: Weight change: Intake/Output Summary (Last 24 hours) at 11/06/2018 1134 Last data filed at 11/06/2018 0934 Gross per 24 hour Intake 2314 ml Output 650 ml Net 1664 ml Vitals reviewed. General: resting in bed, NAD, tremulous voice noted again today. HEENT: PERRL, EOMI, no scleral icterus Cardiac: RRR, metallic click audible, no rubs, murmurs or gallops Pulm: clear to auscultation bilaterally, no wheezes, rales, or rhonchi Abd: soft, nontender, nondistended, BS present Ext: warm and well perfused, right knee dressing is CDI. PT and DP pulses intact bilaterally with brisk cap refill. Neuro: alert and oriented X3, cranial nerves II-XII grossly intact, strength and sensation to light touch equal in bilateral upper and lower extremities, coarse upper extremity tremor noted that improves with movement. Lab Results: Basic Metabolic Panel: Recent Labs 11/05/18 0747 POTASSIUM 3.4* CBC: Recent Labs 11/06/18 0555 HEMOGLOBIN 10.4* Coagulation: Recent Labs 11/05/18 1515 11/05/18 2243 11/06/18 0555 PT 14.0 -- 15.1* INR 1.1* -- 1.2* APTT 29 93* 108* Studies/Results: Xray Knee 1-2v - Rt Result Date: 11/05/2018 Patient Name: CAREN ZAVALA Date of : 1950 Procedure: XRAY KNEE 1-2 VIEWS RT Date of Service: 11/05/2018 EXAM: XRAY KNEE 1-2 VIEWS RT INDICATION: TKA COMPARISON(S): 10/08/2018. FINDINGS/IMPRESSION: Examination of the right knee shows postoperative changes of total knee arthroplasty. No evidence of hardware loosening, periprosthetic fracture, or other complication. Finalized by: Chris Marinelli MD on 11/05/2018 12:33 PM CDT Patient/ Procedure Information: [facility] MRN/BALJINDER: [id number] Order Number: [id number] Ordering Provider: IRENE THOMPSON Authorizing Provider: IRENE THOMPSON Medications: I have reviewed her medications. Current Facility-Administered Medications Medication Dose Route Frequency warfarin (COUMADIN) tablet 7.5 mg 7.5 mg Oral Warfarin 1 time dose trolamine salicylate (ASPERCREME) 10 % cream Apply externally 4 times a day prn allopurinol (ZYLOPRIM) tablet 100 mg 100 mg Oral daily anastrozole (ARIMIDEX) tablet 1 mg 1 mg Oral daily atorvaSTATin (LIPITOR) tablet 20 mg 20 mg Oral at bedtime cetirizine (zyrTEC) tablet 10 mg 10 mg Oral daily doxepin (SINEquan) capsule 10 mg 10 mg Oral at bedtime propranolol (INDERAL) tablet 20 mg 20 mg Oral daily traZODone (DESYREL) tablet 100 mg 100 mg Oral at bedtime phytonadione (vitamin K) tablet 100 mcg 100 mcg Oral daily sodium chloride 0.9% flush (adult) 10 mL 10 mL IV 2 times a day and prn sodium chloride 0.9% IV solution IV Continuous oxyCODONE (OXY-IR) tablet 5-10 mg 5-10 mg Oral Every 4 hours prn fentaNYL 100 mcg/2 mL preservative free injection solution 75 mcg 75 mcg IV Every 30 minutes prn docusate sodium (COLACE) capsule 100 mg 100 mg Oral 2 times a day magnesium hydroxide (MILK OF MAGNESIA) oral suspension 30 mL 30 mL Oral 2 times a day prn bisacodyl (DULCOLAX) enteric coated tablet 5 mg 5 mg Oral 2 times a day prn bisacodyl (DULCOLAX) suppository 10 mg 10 mg Rectal 1 time a day prn ondansetron (ZOFRAN) injection solution 4 mg 4 mg IV Every 4 hours prn benzocaine-menthol (CEPACOL w/ BENZOCAINE) lozenge 1 lozenge 1 lozenge Mouth/Throat Every 4 hours prn hEParin (50 units/mL) in D5W premixed IV solution (STANDARD-weight based) 0 -50 Units/kg/hr IV Titrate heparin (porcine) (5000 units/1 mL) IV dose 2,900 Units 35 Units/kg IV PRN per parameter Or heparin (porcine) (5000 units/1 mL) IV dose 5,700 Units 70 Units/kg IV PRN per parameter sodium chloride 0.9% prefilled 10 mL syringe (Materials Management Item) 20 mL 20 mL IV Daily And sodium chloride 0.9% prefilled 10 mL syringe (Materials Management Item) 20 mL 20 mL IV As often as necessary prn And hEParin 100 units/ mL injection for heplock FLUSH 500 Units IV Daily And hEParin 100 units/ mL injection for heplock FLUSH 500 Units IV As often as necessary prn .Anticoagulation (WARFARIN) therapy nursing reminder 1 each Does not apply Reminder ferrous sulfate (65 mg FE per 325 mg tablet) tablet 325 mg 325 mg Oral 3 times a day vitamin C (ascorbic acid) tablet 500 mg 500 mg Oral 3 times a day Bryan Gillette MD [facility] Pager: [phone] 11: 54 AM Irene Rivas PA - 11/06/2018 9:36 AM CDT ORTHO progress note. Caren Zavala is a 68yr old female admitted on 11/05/2018 6:23 AM 1 Day Post-Op, patient of Ryan Delgado MD Status Post: Procedure(s): RIGHT TOTAL KNEE ARTHROPLASTY Patient doing ok, fair pain control with current meds. She denies nausea today. Lab Results Component Value Date HEMOGLOBIN 10.4 (L) 11/06/2018 Current Vitals: BP 101/74 | Pulse 53 | Temp 97.6 F (36.4 C) | Resp 16 | Ht 1.549 m (5' 1") | Wt 88.2 kg (194 lb 7.1 oz) | SpO2 99% | BMI 36.74 kg/m Dist NVI. Dressing intact. Plan: Continue cares, PT. DC plans pending, will continue to follow. Irene Thompson PA-C Ayala Carranza, [facility] - 11/05/2018 4:37 PM CDT Warfarin Initial Consult Note Ms. Zavala has been initiated on warfarin per pharmacy protocol for AFIB/Mitral valve replacement. Desired goal INR is 2.5-3.5. Patient has previously been on anticoagulation therapy. Previous dose was 5mg on Mondays and 7.5mg AOD Reversal agents given (dose/route/timing): NA Clinically significant drug interactions: Heparin drip Labs: Lab Results Component Value Date INR 1.1 (L) 11/05/2018 PT 14.0 11/05/2018 Protime Date/Time Value Ref Range Status 11/05/2018 03:15 PM 14.0 12.0 - 14.5 secs Final 11/05/2018 07:47 AM 13.9 12.0 - 14.5 secs Final 05/09/2016 11:45 AM >100.0 secs Final 11/18/2013 11:45 AM 36.4 Final 11/04/2013 27.7 (H) Final INR Date/Time Value Ref Range Status 11/05/2018 03:15 PM 1.1 (L) 2.0 - 3.5 Final 11/05/2018 07:47 AM 1.1 (L) 2.0 - 3.5 Final 10/28/2018 01:55 PM 3.0 2.0 - 3.5 Final 03/02/2017 3.00 Final 02/16/2017 2.10 Final 01/18/2017 3.00 Final Platelet Count Date/Time Value Ref Range Status 10/28/2018 01:30 PM 159 140 - 400 K/uL Final 12/15/2015 96 (L) 125 - 369 Final Hemoglobin Date/Time Value Ref Range Status 10/28/2018 01:30 PM 12.2 11.5 - 15.8 g/dL Final 12/15/2015 11 (L) 11.5 - 15.5 Final Plan: Warfarin: 7.5 mg today. Pharmacy will monitor and if indicated, adjust dose per the anticoagulation policy. Thank you very much for the consult. Ayala Tracy, Pharm.D Ton Castanon RPh - 11/05/2018 9:32 AM CDT11/05/2018 09:32 - Patient was seen by pharmacy on the [facility]. HOME MEDICATIONS have been reconciled and updated to match the patient's home usage. Does the patient have home prescription medication bottles with them: yes Ton Simpson RPh documented in this encounter Plan of Treatment Date Type Specialty Care Team Description 11/20/2018 Office Visit Orthopedics Irene Thompson PA [address], [place] [address] [phone] 12/03/2018 Office Visit Orthopedics Ryan Delgado MD [address] [place] [address] [phone] 01/24/2019 Ancillary Procedure Radiology 03/05/2019 Office Visit Oncology Asha Vann MD [address] [place] [address] [phone] 04/04/2019 Office Visit Family Practice Arnie Bailey MD [address] [place] [address] [phone] Name Priority Associated Diagnoses Order Schedule PROTIME/INR Routine Early AM draw for labs until discontinued starting 11/05/2018, 7 completed Name Priority Associated Diagnoses Order Schedule HOSPITAL DISCHARGE WARFARIN Routine Once for 1 Occurrences ANTICOAG ORDER starting 11/11/2018 until 11/11/2018 documented as of this encounter Implants Implanted Type Area Inside Plant Supervisor Device Shelf Model / Identifier Expiration Serial / Date Lot Cmnt Bone Simplex P Stry 40gm N 6191-1-001 - /A Right: KNEE JANUSZ 10/08/2020 [id number] / Implanted: Qty: 1 on 11/05/2018 by Ryan Delgado MD N/A / [id number] Knee Base Attune Cmnt Fix Sz3 N [id number] /A Right: KNEE [employer] 07/11/2028 150-70- / Implanted: Qty: 1 on 11/05/2018 by Ryan Delgado MD N/A / [id number] Knee Fem Attune Depu Rt Sz4 N 150/A Right: KNEE [employer] 05/10/2027 150 / Implanted: Qty: 1 on 11/05/2018 by Ryan Delgado MD N/A / [id number] Knee Ptla Attune Dome [id number] N [id number] Ea1 - Sn/A Right: [employer] 07/11/2023 [id number] / Implanted: Qty: 1 on 11/05/2018 by Ryan Delgado MD PATELLA N/A / [id number] Knee Tib Insrt Attune Sz4 8mm N 1516-40-408 Ea1 - Sn/A Right: KNEE [employer] 06/10/2022 [id number] / Implanted: Qty: 1 on 11/05/2018 by Ryan Delgado MD N/A / [id number] documented as of this encounter Procedures Procedure Name Priority Date/Time Associated Comments Diagnosis PROTIME/INR Routine 11/11/2018 5:50 Results for this AM CDT procedure are in the results section. PTT Timed Routine 11/10/2018 6:34 Results for this AM CDT procedure are in the results section. PROTIME/INR Routine 11/10/2018 6:34 Results for this AM CDT procedure are in the results section. COMPLETE BLOOD COUNT Routine 11/10/2018 6:34 Results for this WITHOUT DIFFERENTIAL AM CDT procedure are in the results section. BASIC METABOLIC Routine 11/10/2018 6:34 Results for this PANEL AM CDT procedure are in the results section. PTT Timed Routine 11/09/2018 11:30 Results for this PM CDT procedure are in the results section. PTT Timed Routine 11/09/2018 5:10 Results for this PM CDT procedure are in the results section. PTT Timed Routine 11/09/2018 9:46 Results for this AM CDT procedure are in the results section. PROTIME/INR Routine 11/09/2018 9:46 Results for this AM CDT procedure are in the results section. COMPLETE BLOOD COUNT Routine 11/09/2018 9:46 Results for this WITHOUT DIFFERENTIAL AM CDT procedure are in the results section. PHOSPHORUS Routine 11/09/2018 9:46 Results for this AM CDT procedure are in the results section. MAGNESIUM Routine 11/09/2018 9:46 Results for this AM CDT procedure are in the results section. BASIC METABOLIC Routine 11/09/2018 9:46 Results for this PANEL AM CDT procedure are in the results section. PTT Timed Routine 11/09/2018 2:24 Results for this AM CDT procedure are in the results section. PTT Timed Routine 11/08/2018 7:39 Results for this PM CDT procedure are in the results section. PTT Timed Routine 11/08/2018 1:35 Results for this PM CDT procedure are in the results section. COLLECT AND HOLD SST Routine 11/08/2018 6:17 Results for this TOP TUBE AM CDT procedure are in the results section. PTT Timed Routine 11/08/2018 6:17 Results for this AM CDT procedure are in the results section. PROTIME/INR Routine 11/08/2018 6:17 Results for this AM CDT procedure are in the results section. COMPLETE BLOOD COUNT Routine 11/08/2018 6:17 Results for this WITHOUT DIFFERENTIAL AM CDT procedure are in the results section. PTT Timed Routine 11/07/2018 11:00 Results for this PM CDT procedure are in the results section. PTT Routine 11/07/2018 3:51 Results for this PM CDT procedure are in the results section. COMPLETE BLOOD COUNT Timed Routine 11/07/2018 3:51 Results for this WITHOUT DIFFERENTIAL PM CDT procedure are in the results section. PTT STAT 11/07/2018 9:16 Results for this AM CDT procedure are in the results section. PTT STAT 11/07/2018 7:33 Results for this AM CDT procedure are in the results section. COLLECT AND HOLD Routine 11/07/2018 5:59 Results for this GREEN TOP TUBE AM CDT procedure are in the results section. COLLECT AND HOLD Routine 11/07/2018 5:59 Results for this LAVENDER (EDTA) TOP AM CDT procedure are in TUBE the results section. PTT Timed Routine 11/07/2018 5:59 Results for this AM CDT procedure are in the results section. PROTIME/INR Routine 11/07/2018 5:59 Results for this AM CDT procedure are in the results section. COMPLETE BLOOD COUNT MADDY 11/07/2018 5:59 Results for this WITHOUT DIFFERENTIAL AM CDT procedure are in the results section. PTT Routine 11/06/2018 10:47 Results for this PM CDT procedure are in the results section. PTT Timed Routine 11/06/2018 12:54 Results for this PM CDT procedure are in the results section. COLLECT AND HOLD Routine 11/06/2018 5:55 Results for this GREEN TOP TUBE AM CDT procedure are in the results section. PTT Timed Routine 11/06/2018 5:55 Results for this AM CDT procedure are in the results section. PROTIME/INR Routine 11/06/2018 5:55 Results for this AM CDT procedure are in the results section. HEMOGLOBIN Routine 11/06/2018 5:55 Results for this AM CDT procedure are in the results section. MAGNESIUM Routine 11/06/2018 5:55 Results for this AM CDT procedure are in the results section. BASIC METABOLIC Routine 11/06/2018 5:55 Results for this PANEL AM CDT procedure are in the results section. PTT Timed Routine 11/05/2018 10:43 Results for this PM CDT procedure are in the results section. PTT MADDY 11/05/2018 3:15 Results for this PM CDT procedure are in the results section. PROTIME/INR Routine 11/05/2018 3:15 Results for this PM CDT procedure are in the results section. XRAY KNEE 1-2 VIEWS Routine 11/05/2018 11:31 Results for this RT AM CDT procedure are in the results section. ARTHROPLASTY KNEE 11/05/2018 9:00 Right knee pain, AM CDT unspecified chronicity Special Needs *x* port right chest TISSUE EXAM Routine 11/05/2018 8:44 AM Right knee pain, Results for this CDT unspecified chronicity procedure are in the results section. PROTIME/INR STAT 11/05/2018 7:47 AM Results for this CDT procedure are in the results section. POTASSIUM STAT 11/05/2018 7:47 AM Results for this CDT procedure are in the results section. documented in this encounter Results PROTIME/INR (11/11/2018 5:50 AM CDT)Only the most recent of8 resultswithin the time period is included. Protime 29.7 (H) 12.0 - 14.5 secs [facility] INR 2.8 2.0 - 3.5 [facility] Specimen Blood Narrative Performed At Normal INR reference range (patients not on oral [facility] anticoagulants)0.9-1.1. INR Standard Intensity=(2.0 - 3.0) INR Higher Intensity=(2.5 - 3.5) Performing Organization Address City/State/Zipcode Phone Number [facility] [address] [place] [address] PTT (11/10/2018 6:34 AM CDT)Only the most recent of18 resultswithin the time period is included. [facility] APTT >150 (HH) 24 - 35 secs [facility] Specimen Blood Performing Organization Address [facility] Phone Number [facility] [address] [place], [place] [address] BASIC METABOLIC PANEL (11/10/2018 6:34 AM CDT)Only the most recent of3 resultswithin the time period is included. [facility] Glucose 99 70 - 100 mg/dL [facility] BUN 11 6 - 22 mg/dL [facility] Creatinine 0.72 0.60 - 1.10 [facility] mg/[facility] BUN/Creatinine Ratio 15.3 10.0 - 25.0 [facility] Sodium 135 135 - 145 meq/L [facility] Potassium 3.9 3.5 - 5.3 meq/L [facility] Chloride 103 99 - 110 meq/L [facility] CO2 23 20 - 29 meq/L [facility] Anion Gap with K 13 6 - 20 meq/L [facility] Calcium 8.4 (L) 8.5 - 10.5 [facility] mg/dL [place] Age 68 Years [facility] eGFR Non- 80 >=60 [facility] mL/min/1.73m2 [place] eGFR >90 >=60 [facility] mL/min/1.73m2 [place] Specimen Blood Performing Organization Address [facility] Cent[facility]ode Phone Number [facility] [address] [place], [place] [address] COMPLETE BLOOD COUNT WITHOUT DIFFERENTIAL (11/10/2018 6:34 AM CDT)Only the most recent of5 resultswithin the time period is included. [facility] WBC 5.3 4.0 - 11.0 K/uL [facility] RBC 2.21 (L) 3.80 - 5.30 M/uL [facility] Hemoglobin 7.5 (L) 11.5 - 15.8 g/dL [facility] Hematocrit 22.1 (L) 35.0 - 45.0 % [facility] MCV 100.0 (H) 80.0 - 98.0 fL [facility] MCH 33.9 25.5 - 34.0 pg [facility] MCHC 33.9 31.5 - 36.5 g/dL [facility] RDW-CV 14.6 11.5 - 15.5 % [facility] RDW-SD 50.4 (H) 35.5 - 50.0 fl [facility] Platelet Count 89 (L) 140 - 400 K/uL [facility] MPV 10.7 8.5 - 12.0 fL [facility] Specimen Blood Performing Organization Address [facility] Phone Number [facility] [address] [place], [place] [phone] PHOSPHORUS (11/09/2018 9:46 AM CDT) Phosphorus 2.3 (L) 2.5 - 4.5 mg/dL [facility] Specimen Blood Performing Organization Address [facility] Phone Number [facility] [address] [place], [place] [address] MAGNESIUM (11/09/2018 9:46 AM CDT)Only the most recent of2 resultswithin the time period is included. Magnesium 1.9 1.8 - 2.4 mg/dL [facility] Specimen Blood Performing Organization Address [facility] Phone Number [facility] [address] [place] [phone] COLLECT AND HOLD SST TOP TUBE (11/08/2018 6:17 AM CDT) Collect and Hold Comment: RECEIVED [facility] Specimen Blood Performing Organization Address [facility] [place] [facility] [place] Phone Number [facility] [address] [place] [phone] COLLECT AND HOLD LAVENDER (EDTA) TOP TUBE (11/07/2018 5:59 AM CDT) Collect and Hold Comment: RECEIVED [facility] Specimen Blood Performing Organization Address [facility] Phone Number [facility] [address] [place] [phone] COLLECT AND HOLD GREEN TOP TUBE (11/07/2018 5:59 AM CDT)Only the most recent of2 resultswithin the time period is included. Collect and Hold Comment: RECEIVED [facility] Specimen Blood Performing Organization Address City/[facility]/Zipcode Phone Number [facility] [address] [place] [phone] HEMOGLOBIN (11/06/2018 5:55 AM CDT) Hemoglobin 10.4 (L) 11.5 - 15.8 g/dL [facility] Specimen Blood Performing Organization Address City/[facility]/Zipcode Phone Number [facility] [address] [place], [place] [phone] XRAY KNEE 1-2V - RT (11/05/2018 11:31 AM CDT) Specimen Narrative Performed At [facility] Patient Name: CAREN ZAVALA Date of :1950 Procedure: XRAY KNEE 1-2 VIEWS RT Date of Service: 11/05/2018 EXAM: XRAY KNEE 1-2 VIEWS RT INDICATION: TKA COMPARISON(S): 10/08/2018. FINDINGS/IMPRESSION: Examination of the right knee shows postoperative changes of total knee arthroplasty. No evidence of hardware loosening, periprosthetic fracture, or other complication. Finalized by: Chris Marinelli MD on 11/05/2018 12:33 PM CDT Patient/Procedure Information: [facility] MRN/BALJINDER: [id number] Order Number: [id number] Accession Number: [id number] Ordering Provider: IRENE THOMPSON Authorizing Provider: IRENE THOMPSON Procedure Note Interface, Radiantres - 11/05/2018 12:35 PM CDT Patient Name: CAREN ZAVALA Date of : 1950 Procedure: XRAY KNEE 1-2 VIEWS RT Date of Service: 11/05/2018 EXAM: XRAY KNEE 1-2 VIEWS RT INDICATION: TKA COMPARISON(S): 10/08/2018. FINDINGS/IMPRESSION: Examination of the right knee shows postoperative changes of total knee arthroplasty. No evidence of hardware loosening, periprosthetic fracture, or other complication. Finalized by: Chris Marinelli MD on 11/05/2018 12:33 PM CDT Patient/Procedure Information: [facility] MRN/BALJINDER: [id number] Order Number: [id number] Accession Number: [id number] Ordering Provider: IRENE THOMPSON Authorizing Provider: IRENE THOMPSON Performing Organization Address [facility] Phone Number [id number] TISSUE EXAM (11/05/2018 8:44 AM CDT) FINAL DIAGNOSIS Bone and soft tissue, right knee, arthroplasty: [facility] Electronically signed - Bone fragments with changes grossly consistent with degenerative joint disease, and soft tissue fragments without gross pathological abnormality ( gross examination only; see gross description). CLINIC by Stacey Johns MD on 11/05/2018 at JLL:ao 4:56 PM GROSS DESCRIPTION Received in formalin labeled "right knee bone and tissue" is a 14.2 x 10.4 x 1.9 cm aggregate of multiple yellow-nunez bone and soft tissue fragments, including the tibial plateau and femoral condyles. Th [facility] e patella is present. The articular surfaces show areas of eburnation, osteophyte formation and focal pitting. The specimen is for gross only diagnosis, no sections are submitted. CLINIC MS:ao MICROSCOPIC [facility] DESCRIPTION CLINIC CASE REPORT Surgical Pathology Report Case: [id number] [facility] Authorizing Provider:Ryan Delgado MD Collected: 11/05/2018 0844 CLINIC Ordering Location: [facility] Received: 11/05/2018 1115 Pathologist: Stacey Johns MD Specimen:Knee, RIGHT KNEE BONE AND TISSUE EMBEDDED IMAGES [facility] Specimen Bone Performing Organization Address [facility] Phone Number [facility] [address] [place] [address] POTASSIUM (11/05/2018 7:47 AM CDT) Potassium 3.4 (L) 3.5 - 5.3 meq/L [facility] Specimen Blood Performing Organization Address [facility] Phone Number [facility] [address] [place] [address] [place] [phone] documented in this encounter Visit Diagnoses Diagnosis S/P total knee arthroplasty, right - Primary Right knee pain, unspecified chronicity Status post total right knee replacement Constipation due to opioid therapy Diarrhea of infectious origin Diarrhea of presumed infectious origin S/P mitral valve replacement with metallic valve Heart valve replaced by other means Mild intermittent asthma without complication Unspecified asthma Essential hypertension Unspecified essential hypertension Chronic atrial fibrillation (HCC) Atrial fibrillation Chronic diastolic heart failure (HCC) Chronic diastolic heart failure Mixed hyperlipidemia documented in this encounter Discharge Diagnoses Not on filedocumented in this encounter Administered Medications Medication Order MAR Action Action Date Dose Rate Site .Anticoagulation (WARFARIN) therapy nursing reminder Anti-coag reminder, First dose on Sun11/06/18 at 1000, Until Discontinued acetaminophen (TYLENOL) tablet 1,000 mg Given 11/11/2018 8:27 AM CDT 1,000 mg 1,000 mg, Oral, Three times a day, First dose on Sun11/07/18 at 0935, Until Discontinued, Total dose of acetaminophen from all acetaminophen containing products should not exceed 4 grams (4000 mg) per day., Given 11/10/2018 8:31 PM CDT 1,000 mg Given 11/10/2018 3:00 PM CDT 1,000 mg allopurinol (ZYLOPRIM) tablet 100 mg Given 11/11/2018 8:24 AM CDT 100 mg 100 mg, Oral, DAILY, First dose on Sun11/06/18 at 0900, Until Discontinued Given 11/10/2018 8:51 AM CDT 100 mg Given 11/09/2018 8:25 AM CDT 100 mg anastrozole (ARIMIDEX) tablet 1 mg Given 11/11/2018 8:22 AM CDT 1 mg 1 mg, Oral, DAILY, First dose on Sun11/06/18 at 0900, Until Discontinued, This medication is a low risk cytotoxic drug. Wear 2 pairs of chemo gloves for administration. If unable to administer dose intact - contact pharmacy for other administration options. Dispose of empty packages in the yellow cytotoxic waste. Dispose of unused or partial packages in the black waste containers., Given 11/10/2018 8:51 AM CDT 1 mg Given 11/09/2018 8:25 AM CDT 1 mg atorvaSTATin (LIPITOR) tablet 20 mg Given 11/10/2018 8:31 PM CDT 20 mg 20 mg, Oral, Bedtime, First dose on Sun11/05/18 at 2100, Until Discontinued Given 11/09/2018 8:15 PM CDT 20 mg Given 11/08/2018 9:49 PM CDT 20 mg cetirizine (zyrTEC) tablet 10 mg Given 11/11/2018 8:24 AM CDT 10 mg 10 mg, Oral, DAILY, First dose on Sun11/06/18 at 0900, Until Discontinued Given 11/10/2018 8:51 AM CDT 10 mg Given 11/09/2018 8:25 AM CDT 10 mg docusate sodium (COLACE) capsule 100 mg Given 11/11/2018 8:27 AM CDT 100 mg 100 mg, Oral, Two times a day, First dose on Sun11/05/18 at 2100, Until Discontinued, Post - Op, Swallow cap whole. Should not be crushed or chewed, Given 11/09/2018 8:14 PM CDT 100 mg Given 11/06/2018 8:14 PM CDT 100 mg doxepin (SINEquan) capsule 10 mg Given 11/10/2018 8:31 PM CDT 10 mg 10 mg, Oral, Bedtime, First dose on Sun11/05/18 at 2100, Until Discontinued Given 11/09/2018 8:15 PM CDT 10 mg Given 11/08/2018 9:49 PM CDT 10 mg ferrous sulfate (65 mg FE per 325 mg tablet) Given 11/11/2018 8:24 AM CDT 325 mg tablet 325 mg 325 mg, Oral, Three times a day, First dose on Sun11/05/18 at 2100, Until Discontinued Given 11/10/2018 8:31 PM CDT 325 mg Given 11/10/2018 3:00 PM CDT 325 mg hEParin 100 units/ mL injection for Given 11/10/2018 8:52 AM CDT 500 Units heplock FLUSH 500 Units, IV, Daily, First dose on Sun11/06/18 at 0900, Until Discontinued, 5 mL, Flush with 20 mL sodium chloride 0.9% followed by 500 units (100 units/mL) heparin monthly when not accessed, hEParin 100 units/ mL injection for Given 11/11/2018 9:30 AM CDT 500 Units heplock FLUSH 500 Units, IV, As often as necessary prn, Starting Sun11/05/18 at 1532, Until Discontinued, other (Specify), port maintanence, 6 mL, Flush with 20 mL sodium chloride 0.9% followed by 500 units (100 units/mL) heparin after each use., HYDROmorphone (DILAUDID) tablet 2 mg Given 11/11/2018 11:09 AM CDT 2 mg 2 mg, Oral, Every four hours prn, Starting Sun11/07/18 at 1026, Until Discontinued, moderate pain Given 11/11/2018 12:13 AM CDT 2 mg Given 11/10/2018 12:38 AM CDT 2 mg loperamide (IMODIUM) capsule 2 mg 2 mg, Oral, Every one hour prn, Starting Sun11/07/18 at 2020, Until Discontinued, diarrhea, Get a Cdiff sample prior to giving this medication., Recommended maximum for children greater than 12 years and adults: 16 mg in 24 hours., ondansetron (ZOFRAN) tablet 4 mg Given 11/09/2018 8:20 AM CDT 4 mg 4 mg, Oral, Every four hours prn, Starting Sun11/08/18 at 1344, Until Discontinued, nausea, vomiting Given 11/08/2018 8:28 PM CDT 4 mg Given 11/08/2018 1:47 PM CDT 4 mg phytonadione (vitamin K) tablet 100 mcg Given 11/10/2018 3:00 PM CDT 100 mcg 100 mcg, Oral, DAILY, First dose on Sun11/05/18 at 1615, Until Discontinued Given 11/09/2018 2:40 PM CDT 100 mcg Given 11/08/2018 3:09 PM CDT 100 mcg propranolol (INDERAL) tablet 20 mg Given 11/10/2018 3:00 PM CDT 20 mg 20 mg, Oral, DAILY, First dose on Sun11/05/18 at 1605, Until Discontinued, Hold for SBP less than 100 Hold for HR less than 55, Given 11/09/2018 2:45 PM CDT 20 mg Given 11/08/2018 3:08 PM CDT 20 mg sodium chloride 0.9% flush (adult) 10 mL Given 11/10/2018 8:31 PM CDT 10 mL 10 mL, IV, Two times a day and prn, First dose on Sun11/05/18 at 2100, Until Discontinued, 10 mL, Post - Op, Flush IV line as scheduled and as often as necessary before and after meds., Given 11/09/2018 8:15 PM CDT 10 mL Given 11/09/2018 8:22 AM CDT 10 mL sodium chloride 0.9% prefilled 10 mL syringe Given 11/10/2018 9:47 AM CDT 20 mL (Materials Management Item) 20 mL 20 mL, IV, Daily, First dose on Sun11/06/18 at 0900, Until Discontinued, 20 mL, Flush with 20 mL sodium chloride 0.9% followed by 500 units (100 units/mL) heparin monthly when not accessed, sodium chloride 0.9% prefilled 10 mL syringe Given 11/11/2018 9:30 AM CDT 20 mL (Materials Management Item) 20 mL 20 mL, IV, As often as necessary prn, Starting Sun11/05/18 at 1532, Until Discontinued, other (Specify), [place], 20 mL, Flush with 20 mL sodium chloride 0.9% followed by 500 units (100 units/mL) heparin after each use., traZODone (DESYREL) tablet 100 mg Given 11/10/2018 8:31 PM CDT 100 mg 100 mg, Oral, Bedtime, First dose on Sun11/05/18 at 2100, Until Discontinued Given 11/09/2018 8:15 PM CDT 100 mg Given 11/08/2018 9:49 PM CDT 100 mg trolamine salicylate (ASPERCREME) 10 % cream Given 11/11/2018 12:13 AM CDT Apply externally, Four times a day prn, Starting Sun11/06/18 at 1134, Until Discontinued, other (Specify), muscle cramps Given 11/10/2018 4:38 PM CDT Given 11/10/2018 8:48 AM CDT vitamin C (ascorbic acid) tablet 500 mg Given 11/11/2018 8:23 AM CDT 500 mg 500 mg, Oral, Three times a day, First dose on Sun11/05/18 at 2100, Until Discontinued Given 11/10/2018 8:31 PM CDT 500 mg Given 11/10/2018 3:00 PM CDT 500 mg warfarin (COUMADIN) tablet 7.5 mg 7.5 mg, Oral, Warfarin one time dose, 1 dose, Sun11/11/18 at 1600, If patient is receiving tube feeding, hold tube feeding 1 hour before and 1 hour after warfarin administration., Patient s own medication has been identified by Pharmacist and approved for hospital use by hospital policy., , Medication Order MAR Action Action Date Dose Rate Site dexamethasone sodium phosphate 5 mg Given 11/05/2018 9:03 AM CDT in ropivacaine 0.5 % 150 mg Peripheral Nerve Block Injection Syringe Perineural, Now, 1 dose, [facility] 11/05/18 at 0850, 30.5 mL, Pre - Op, Inject 5-10 mL per administration as directed by Anesthesia with a total maximum of 40 mL, fentaNYL 100 mcg/2 mL preservative free Given 11/05/2018 9:03 AM CDT 50 mcg injection solution 25-100 mcg 25-100 mcg, IV, Every five minutes prn, 3 doses, Starting [facility] 11/05/18 at 0845, Until [facility] 11/05/18 at 1401, other (Specify), Sedation, 2 mL, Pre - Op, Fentanyl 25-100 mcg q 5 min prn over the next 2 hours to a MAX of 300 mcg as needed for analgesia during procedure, fentaNYL 100 mcg/2 mL preservative free Given 11/06/2018 8:24 PM CDT 75 mcg injection solution 75 mcg 75 mcg, IV, Every thirty minutes prn, Starting [facility] 11/05/18 at 1413, Until [facility] 11/07/18 at 0933, severe pain, 2 mL, Post - Op, If pain unrelieved by oxyCODONE, Given 11/05/2018 7:59 PM CDT 75 mcg hEParin (50 units/mL) in Rate Change 11/10/2018 12:26 AM 16 Units/kg/hr 26.1 mL/hr D5W premixed IV solution CDT (STANDARD-weight based) 0-50 Units/kg/hr 81.6 kg (0-81.6 mL/hr), IV, at 0-81.6 mL/hr, Titrate, Starting [facility] 11/05/18 at 1530, Until [place] 11/10/18 at 0816, 500 mL, Start initial infusion at 15 units/kg/hr. Notify physician if initial infusion exceeds 1,500 units/hr. Adjust heparin infusion based on sliding scale: * aPTT less than 60 sec ------ Give 70 units/kg IV bolus and add 4 units/kg/hr to current rate * aPTT 60-69.9 sec Give 35 units/kg IV bolus and add 2 units/kg/hr to current rate * aPTT 70-120.9 sec No change (therapeutic) * aPTT 121-135.9 sec Subtract 2 units/kg/hr from current rate * aPTT 136-149.9 sec --------- Hold heparin for 1 hour and subtract 3 units/kg/hr from current rate * aPTT 150 sec or greater - Redraw STAT aPTT and hold heparin. Draw hourly aPTT using routine specified time until less than 150 sec, then restart heparin infusion at 3 units/kg/hr less than the previous rate, give NO BOLUS and resume every 6 hour aPTT. AFTER PROCEDURE: When restarting infusion after it's been held for a procedure, restart infusion at "starting" dose of 15 units/kg/hr and follow titration orders. IF infusion was running at less than 15 units/kg/hr prior to procedure, restart at that rate and follow titration orders., New Bag 11/09/2018 8:10 PM CDT 14 Units/kg/hr 22.8 mL/hr Rate Verify 11/09/2018 5:47 PM CDT 14 Units/kg/hr 22.8 mL/hr heparin (porcine) (5000 units/1 mL) IV Given 11/10/2018 12:25 AM CDT 2,900 Units dose 2,900 Units 2,900 Units (rounded from 2,856 Units=35 Units/kg 81.6 kg), IV, PRN per parameter, Starting Tu11/05/18 at 1429, Until 11/10/18 at 0816, other (Specify), * aPTT 60 to 69.9 seconds - Give 35 units/kg IV bolus and add 2 units/kg/hr to current rate of infusion, 1 mL, Supplemental bolus doses based on aPTT: * aPTT less than 60 seconds - Give 70 units/kg IV bolus and add 4 units/kg/hr to current rate of infusion. * aPTT 60 to 69.9 seconds - Give 35 units/kg IV bolus and add 2 units/kg/hr to current rate of infusion. Round to the nearest 100 units up to a maximum bolus of heparin 7500 units. , Given 11/09/2018 10:50 AM CDT 2,900 Units Given 11/07/2018 11:50 PM CDT 2,900 Units heparin (porcine) (5000 units/1 mL) IV Given 11/06/2018 11:56 PM CDT 5,700 Units dose 5,700 Units 5,700 Units (rounded from 5,712 Units=70 Units/kg 81.6 kg), IV, PRN per parameter, Starting Sun11/05/18 at 1429, Until Sun11/10/18 at 0816, other (Specify), * aPTT less than 60 seconds - Give 70 units/kg IV bolus and add 4 units/kg/hr to current rate of infusion, 2 mL, Supplemental bolus doses based on aPTT: * aPTT less than 60 seconds - Give 70 units/kg IV bolus and add 4 units/kg/hr to current rate of infusion. * aPTT 60 to 69.9 seconds - Give 35 units/kg IV bolus and add 2 units/kg/hr to current rate of infusion. Round to the nearest 100 units up to a maximum bolus of heparin 7500 units , HYDROmorphone (DILAUDID) tablet 4 mg Given 11/07/2018 10:53 AM CDT 4 mg 4 mg, Oral, Every four hours prn, Starting [facility] 11/07/18 at 1026, Until [facility] 11/07/18 at 1438, severe pain ketorolac (TORADOL) intravenous injection 15 Given 11/06/2018 5:01 AM CDT 15 mg mg 15 mg, IV, Every six hours, 3 doses, First dose on Sun11/05/18 at 1600, Last dose on Sun11/06/18 at 0400, 1 mL, Post - Op, Max prn dose=60 mg/day If preference is to further dilute for IV administration: First draw up patient-specific dose, then dilute to 10 mL with 0.9% sodium chloride., Given 11/05/2018 10:00 PM CDT 15 mg Given 11/05/2018 4:00 PM CDT 15 mg lactated ringers IV solution New Bag 11/05/2018 8:07 AM CDT 25 mL/hr IV, at 25 mL/hr, Continuous, Starting Sun11/05/18 at 0800, Until Sun11/05/18 at 1401, 1,000 mL, Pre - Op lactated ringers IV solution New Bag 11/05/2018 1:02 PM CDT 125 mL/hr IV, at 125 mL/hr, Continuous, Starting Sun11/05/18 at 1100, Until Sun11/05/18 at 1413, 1,000 mL, PACU, TKO current fluids if patient is going to Day Unit / ARU and tolerating PO fluids without nausea., Already Infusing 11/05/2018 11:13 AM CDT 125 mL/hr midazolam (VERSED) injection solution 0.25-2 Given 11/05/2018 9:03 AM CDT 2 mg mg 0.25-2 mg, IV, Every five minutes prn, 6 doses, Starting Sun11/05/18 at 0845, Until Sun11/05/18 at 1401, sedation, 2 mL, Pre - Op, Midazolam 0.25-2 mg q 5 min prn to a MAX of 5 mg as needed for sedation during procedure., ondansetron (ZOFRAN) injection solution 4 mg Given 11/08/2018 8:10 AM CDT 4 mg 4 mg, IV, Every four hours prn, Starting Sun11/05/18 at 1109, Until Sun11/08/18 at 1344, nausea, vomiting, 2 mL, PACU - Continue Post-Op, If ineffective after 15 minutes use promethazine If preference is to further dilute for IV administration: First draw up patient-specific dose, then dilute to 10 mL with 0.9% sodium chloride., Given 11/07/2018 3:40 PM CDT 4 mg oxyCODONE (OXY-IR) tablet 5-10 mg Given 11/07/2018 7:14 AM CDT 10 mg 5-10 mg, Oral, Every four hours prn, Starting Sun11/05/18 at 1413, Until [facility] 11/07/18 at 0933, moderate pain, severe pain, Post - Op, For patients with moderate pain, pain rating of 4-6, give oxyCODONE 5 mg PO every 4 hours PRN. For patients with severe pain, pain rating of 7-10, give oxyCODONE 10 mg PO every 4 hours PRN., Given 11/07/2018 2:47 AM CDT 10 mg Given 11/06/2018 10:28 PM CDT 10 mg sodium chloride 0.9% IV solution Rate Change 11/06/2018 11:59 AM CDT 50 mL/hr IV, at 50 mL/hr, Continuous, Starting Sun11/05/18 at 1415, Until [facility] 11/07/18 at 0824, 1,000 mL, Post - Op Rate Change 11/06/2018 11:49 AM CDT 50 mL/hr New Bag 11/06/2018 1:32 AM CDT 100 mL/hr sodium chloride 0.9% IV solution New Bag 11/08/2018 6:28 AM CDT 50 mL/hr IV, at 50 mL/hr, Continuous, Starting [facility] 11/07/18 at 1720, Until 11/08/18 at 1344, 1,000 mL Restarted 11/07/2018 4:49 PM CDT 50 mL/hr vancomycin in dextrose 200 mL IV piggyback Given 11/05/2018 8:48 AM CDT 1, 000 mg (premix) 1,000 mg 1,000 mg, IV, Pre-op, 1 dose, Sun11/05/18 at 0500, 200 mL, Pre - Op, Give in PREOP area. Start 1-2 hours prior to cut time and complete prior to cut time, vancomycin in dextrose 200 mL IV piggyback Given 11/05/2018 8:45 PM CDT 1, 000 mg (premix) 1,000 mg 1,000 mg, IV, One time, 1 dose, Sun11/05/18 at 2100, 200 mL, PACU - Continue Post-Op warfarin (COUMADIN) tablet 5 mg Given 11/09/2018 3:00 PM CDT 5 mg 5 mg, Oral, Warfarin one time dose, 1 dose, 11/09/18 at 1600, If patient is receiving tube feeding, hold tube feeding 1 hour before and 1 hour after warfarin administration., warfarin (COUMADIN) tablet 5 mg Given 11/10/2018 3:00 PM CDT 5 mg 5 mg, Oral, Warfarin one time dose, 1 dose, 11/10/18 at 1600, If patient is receiving tube feeding, hold tube feeding 1 hour before and 1 hour after warfarin administration., warfarin (COUMADIN) tablet 7.5 mg Given 11/05/2018 4:40 PM CDT 7.5 mg 7.5 mg, Oral, Warfarin one time dose, 1 dose, [facility] 11/05/18 at 1625, Post - Op, Patient s own medication has been identified by Pharmacist and approved for hospital use by hospital policy., , warfarin (COUMADIN) tablet 7.5 mg Given 11/06/2018 3:43 PM CDT 7.5 mg 7.5 mg, Oral, Warfarin one time dose, 1 dose, 11/06/18 at 1600, Post - Op, Patient's own medication has been identified by Pharmacist and approved for hospital use by hospital policy. , warfarin (COUMADIN) tablet 7.5 mg Given 11/08/2018 3:12 PM CDT 7.5 mg 7.5 mg, Oral, Daily (Warfarin), First dose on [facility]ique 11/07/18 at 1600, Until Discontinued, ++patient's own med Brand Necessary Nabortoven+++, Given 11/07/2018 3:23 PM CDT 7.5 mg documented in this encounter
[2018-11-12] MEDS: Lisinopril 10 MG Tab PO SCH (17:49)
[2018-11-12] MEDS: Polyethylene Glycol 3350 Powder 17 GM Packet PO PRN (17:50)
[2018-11-12] MEDS: CHERRY EXTRACT PO SCH (17:50)
[2018-11-12] MEDS: Doxepin 10 MG Cap PO SCH (20:07)
[2018-11-12] MEDS: atorvaSTATin 10 MG Tab PO SCH (20:07)
[2018-11-12] MEDS: traZODone 50 MG Tab PO SCH (20:07)
[2018-11-12] MEDS: Zolpidem 5 MG Tab PO SCH (20:07)
[2018-11-13] MEDS: HYDROmorphone 2 MG Tab PO PRN ×2 (06:05→19:24)
[2018-11-13] MEDS: Alendronate 70 MG Tab PO SCH (06:05)
[2018-11-13] MEDS: Sodium Chloride 0.9% 10 ML Syringe FLUSH PRN ×2 (07:19→15:54)
[2018-11-13 08:11] LABS: CHLORIDE,CL 98 mmol/L (98-107); SODIUM,NA 133 mmol/L (136-145)
[2018-11-13] MEDS: Ascorbic Acid 500 MG Tab PO SCH ×3 (09:05→17:42)
[2018-11-13] MEDS: Calcium Carbonate 500 MG Tab.Chew PO SCH (09:05)
[2018-11-13] MEDS: Anastrozole 1 MG Tab PO SCH (09:05)
[2018-11-13] MEDS: Acetaminophen 500 MG Tab PO SCH ×3 (09:06→17:41)
[2018-11-13] MEDS: Ferrous Sulfate 325 MG Tab PO SCH ×3 (09:07→17:42)
[2018-11-13] MEDS: Allopurinol 100 MG Tab PO SCH (09:07)
[2018-11-13] MEDS: Furosemide 40 MG Tab PO SCH ×2 (09:08→11:19)
[2018-11-13] MEDS: Cholecalciferol (Vitamin D3) 1,000 Unit Tab PO SCH (09:08)
[2018-11-13] MEDS: Spironolactone 25 MG Tab PO SCH (09:08)
[2018-11-13] MEDS: Cetirizine 10 MG Tab PO SCH (09:09)
[2018-11-13] MEDS: Propranolol 20 MG Tab PO SCH (09:09)
[2018-11-13] MEDS: Docusate Sodium 100 MG Cap PO SCH (09:09)
[2018-11-13] MEDS: CHERRY EXTRACT PO SCH (09:10)
--- NOTE | 2018-11-13 13:44 | PCM.SN ---
- Free Text/Narrative Note: Orders to have patient transfused x2 units PRBCs due to low Hgb. History of similar issues in past. Due to limited amount of available blood at our facility patient will have single unit given today, and an additional unit given tomorrow once additional blood is obtained for our facility. Recheck Hgb daily over next two days. Patient is feeling well overall and has no acute complaints.
[2018-11-13] MEDS: Lisinopril 10 MG Tab PO SCH (17:42)
[2018-11-13] MEDS: atorvaSTATin 10 MG Tab PO SCH (19:24)
[2018-11-13] MEDS: Doxepin 10 MG Cap PO SCH (19:24)
[2018-11-13] MEDS: traZODone 50 MG Tab PO SCH (19:25)
[2018-11-13] MEDS: Zolpidem 5 MG Tab PO SCH (19:26)
[2018-11-14] MEDS: Calcium Carbonate 500 MG Tab.Chew PO SCH (08:02)
[2018-11-14] MEDS: Ascorbic Acid 500 MG Tab PO SCH ×3 (08:02→15:52)
[2018-11-14] MEDS: Ferrous Sulfate 325 MG Tab PO SCH ×3 (08:02→15:52)
[2018-11-14] MEDS: Propranolol 20 MG Tab PO SCH (08:02)
[2018-11-14] MEDS: Allopurinol 100 MG Tab PO SCH (08:03)
[2018-11-14] MEDS: Spironolactone 25 MG Tab PO SCH (08:03)
[2018-11-14] MEDS: Cetirizine 10 MG Tab PO SCH (08:03)
[2018-11-14] MEDS: Anastrozole 1 MG Tab PO SCH (08:03)
[2018-11-14] MEDS: Cholecalciferol (Vitamin D3) 1,000 Unit Tab PO SCH (08:03)
[2018-11-14] MEDS: Furosemide 40 MG Tab PO SCH ×2 (08:03→11:16)
[2018-11-14] MEDS: Acetaminophen 500 MG Tab PO SCH ×3 (08:04→17:04)
[2018-11-14] MEDS: Docusate Sodium 100 MG Cap PO SCH (08:04)
[2018-11-14] MEDS: CHERRY EXTRACT PO SCH (08:07)
[2018-11-14] MEDS: Sodium Chloride 0.9% 10 ML Syringe FLUSH PRN (08:08)
[2018-11-14] MEDS: Polyethylene Glycol 3350 Powder 17 GM Packet PO PRN (08:09)
--- NOTE | 2018-11-14 13:13 | PCM.SN ---
- Free Text/Narrative Note: Patient received single unit of blood yesterday, with additional unit scheduled for today. Hgb improved from 6.6 to 7.8 Hct from 19.9 to 23.6 Platelets 166, INR 2.7 Recheck labs in AM. Consider restarting pt's Warfarin tomorrow, now that her INR has decreased to within therapeutic level. + for occult blood, however patient constipated due to narcotics and straining to have stools. Consider to observe for stools changes that could reflect GI bleed.
[2018-11-14] MEDS ORDERED: Sodium Chloride 0.9% 250 ML IV SCH (13:15)
[2018-11-14] MEDS: Lisinopril 10 MG Tab PO SCH (16:59)
[2018-11-14] MEDS: atorvaSTATin 10 MG Tab PO SCH (19:44)
[2018-11-14] MEDS: traZODone 50 MG Tab PO SCH (19:44)
[2018-11-14] MEDS: Zolpidem 5 MG Tab PO SCH (19:44)
[2018-11-14] MEDS: Doxepin 10 MG Cap PO SCH (19:45)
[2018-11-14] MEDS: HYDROmorphone 2 MG Tab PO PRN (19:45)
[2018-11-15] MEDS: Spironolactone 25 MG Tab PO SCH (07:36)
[2018-11-15] MEDS: Docusate Sodium 100 MG Cap PO SCH (07:36)
[2018-11-15] MEDS: Anastrozole 1 MG Tab PO SCH (07:36)
[2018-11-15] MEDS: Acetaminophen 500 MG Tab PO SCH ×3 (07:37→17:15)
[2018-11-15] MEDS: Ferrous Sulfate 325 MG Tab PO SCH ×3 (07:37→16:18)
[2018-11-15] MEDS: Ascorbic Acid 500 MG Tab PO SCH ×3 (07:37→16:17)
[2018-11-15] MEDS: CHERRY EXTRACT PO SCH (07:39)
[2018-11-15] MEDS: Calcium Carbonate 500 MG Tab.Chew PO SCH (07:39)
[2018-11-15] MEDS: Cetirizine 10 MG Tab PO SCH (07:40)
[2018-11-15] MEDS: Allopurinol 100 MG Tab PO SCH (07:41)
[2018-11-15] MEDS: Cholecalciferol (Vitamin D3) 1,000 Unit Tab PO SCH (07:41)
[2018-11-15] MEDS: Furosemide 40 MG Tab PO SCH (07:41)
[2018-11-15] MEDS: Propranolol 20 MG Tab PO SCH (07:47)
--- NOTE | 2018-11-15 11:27 | PCM.SN ---
- Free Text/Narrative Note: Hgb 8.1 and Hct 24.4 today. INR 1.9 Restart patient's Warfarin and Vit K today. BPs have been in lower range, Lisinopril discontinued. Lasix changed to patient 's usual daily dose. Recheck CBC and INR in 2 days. Patient continues to do well and has not acute complaints.
[2018-11-15] MEDS: PHYTONADIONE 100 MCG PO SCH (11:56)
[2018-11-15] MEDS: Furosemide 20 MG Tab PO SCH (11:56)
[2018-11-15] MEDS: Polyethylene Glycol 3350 Powder 17 GM Packet PO PRN (15:41)
[2018-11-15] MEDS: Warfarin 5 MG Tab PO SCH (17:16)
[2018-11-15] MEDS: atorvaSTATin 10 MG Tab PO SCH (20:01)
[2018-11-15] MEDS: traZODone 50 MG Tab PO SCH (20:01)
[2018-11-15] MEDS: Doxepin 10 MG Cap PO SCH (20:02)
[2018-11-15] MEDS: Zolpidem 5 MG Tab PO SCH (20:02)
[2018-11-16] MEDS: Ascorbic Acid 500 MG Tab PO SCH ×3 (07:54→16:10)
[2018-11-16] MEDS: Ferrous Sulfate 325 MG Tab PO SCH ×3 (07:54→16:10)
[2018-11-16] MEDS: Calcium Carbonate 500 MG Tab.Chew PO SCH (07:54)
[2018-11-16] MEDS: Anastrozole 1 MG Tab PO SCH (07:55)
[2018-11-16] MEDS: Spironolactone 25 MG Tab PO SCH (07:55)
[2018-11-16] MEDS: Propranolol 20 MG Tab PO SCH (07:55)
[2018-11-16] MEDS: Docusate Sodium 100 MG Cap PO SCH (07:57)
[2018-11-16] MEDS: Furosemide 40 MG Tab PO SCH (07:57)
[2018-11-16] MEDS: Cholecalciferol (Vitamin D3) 1,000 Unit Tab PO SCH (07:57)
[2018-11-16] MEDS: Cetirizine 10 MG Tab PO SCH (07:57)
[2018-11-16] MEDS: Acetaminophen 500 MG Tab PO SCH ×3 (07:58→17:31)
[2018-11-16] MEDS: Allopurinol 100 MG Tab PO SCH (07:59)
[2018-11-16] MEDS: PHYTONADIONE 100 MCG PO SCH (07:59)
[2018-11-16] MEDS: CHERRY EXTRACT PO SCH (07:59)
[2018-11-16] MEDS: Sodium Chloride 0.9% 10 ML Syringe FLUSH PRN (10:30)
[2018-11-16] MEDS: Furosemide 20 MG Tab PO SCH (11:42)
[2018-11-16] MEDS: Polyethylene Glycol 3350 Powder 17 GM Packet PO PRN (16:21)
[2018-11-16] MEDS: Warfarin 5 MG Tab PO SCH (17:32)
[2018-11-16] MEDS: traZODone 50 MG Tab PO SCH (20:00)
[2018-11-16] MEDS: atorvaSTATin 10 MG Tab PO SCH (20:00)
[2018-11-16] MEDS: Doxepin 10 MG Cap PO SCH (20:00)
[2018-11-16] MEDS: Zolpidem 5 MG Tab PO SCH (20:00)
[2018-11-17] MEDS: HYDROmorphone 2 MG Tab PO PRN (01:43)
[2018-11-17] MEDS: Ferrous Sulfate 325 MG Tab PO SCH ×3 (07:44→15:46)
[2018-11-17] MEDS: Ascorbic Acid 500 MG Tab PO SCH ×3 (07:44→15:46)
[2018-11-17] MEDS: CHERRY EXTRACT PO SCH (07:45)
[2018-11-17] MEDS: PHYTONADIONE 100 MCG PO SCH (07:45)
[2018-11-17] MEDS: Docusate Sodium 100 MG Cap PO SCH (07:46)
[2018-11-17] MEDS: Anastrozole 1 MG Tab PO SCH (07:46)
[2018-11-17] MEDS: Furosemide 40 MG Tab PO SCH (07:47)
[2018-11-17] MEDS: Acetaminophen 500 MG Tab PO SCH ×3 (07:47→18:14)
[2018-11-17] MEDS: Allopurinol 100 MG Tab PO SCH (07:48)
[2018-11-17] MEDS: Spironolactone 25 MG Tab PO SCH (07:48)
[2018-11-17] MEDS: Cetirizine 10 MG Tab PO SCH (07:49)
[2018-11-17] MEDS: Propranolol 20 MG Tab PO SCH (07:49)
[2018-11-17] MEDS: Cholecalciferol (Vitamin D3) 1,000 Unit Tab PO SCH (07:49)
[2018-11-17] MEDS: Sodium Chloride 0.9% 10 ML Syringe FLUSH PRN (07:50)
[2018-11-17] MEDS: Calcium Carbonate 500 MG Tab.Chew PO SCH (08:07)
[2018-11-17 08:29] LABS: CHLORIDE,CL 98 mmol/L (98-107); SODIUM,NA 133 mmol/L (136-145)
[2018-11-17] MEDS: Furosemide 20 MG Tab PO SCH (12:10)
[2018-11-17] MEDS: Warfarin 5 MG Tab PO SCH (18:14)
[2018-11-17] MEDS: Doxepin 10 MG Cap PO SCH (20:22)
[2018-11-17] MEDS: traZODone 50 MG Tab PO SCH (20:23)
[2018-11-17] MEDS: Zolpidem 5 MG Tab PO SCH (20:23)
[2018-11-17] MEDS: atorvaSTATin 10 MG Tab PO SCH (20:23)
[2018-11-18] MEDS: Calcium Carbonate 500 MG Tab.Chew PO SCH (08:16)
[2018-11-18] MEDS: Ascorbic Acid 500 MG Tab PO SCH ×3 (08:16→15:19)
[2018-11-18] MEDS: Anastrozole 1 MG Tab PO SCH (08:16)
[2018-11-18] MEDS: Cetirizine 10 MG Tab PO SCH (08:17)
[2018-11-18] MEDS: Acetaminophen 500 MG Tab PO SCH ×3 (08:17→17:21)
[2018-11-18] MEDS: Propranolol 20 MG Tab PO SCH (08:18)
[2018-11-18] MEDS: Cholecalciferol (Vitamin D3) 1,000 Unit Tab PO SCH (08:19)
[2018-11-18] MEDS: Allopurinol 100 MG Tab PO SCH (08:19)
[2018-11-18] MEDS: Docusate Sodium 100 MG Cap PO SCH (08:19)
[2018-11-18] MEDS: Ferrous Sulfate 325 MG Tab PO SCH ×3 (08:19→15:19)
[2018-11-18] MEDS: Spironolactone 25 MG Tab PO SCH (08:19)
[2018-11-18] MEDS: CHERRY EXTRACT PO SCH (08:20)
[2018-11-18] MEDS: PHYTONADIONE 100 MCG PO SCH (08:20)
[2018-11-18] MEDS: Furosemide 40 MG Tab PO SCH (08:20)
[2018-11-18] MEDS: HYDROmorphone 2 MG Tab PO PRN ×2 (10:05→20:53)
[2018-11-18] MEDS: Furosemide 20 MG Tab PO SCH (11:49)
[2018-11-18] MEDS: Warfarin 5 MG Tab PO SCH (17:15)
[2018-11-18] MEDS: Polyethylene Glycol 3350 Powder 17 GM Packet PO PRN (17:20)
[2018-11-18] MEDS: Bisacodyl 5 MG Tab PO PRN (17:21)
[2018-11-18] MEDS: Sodium Chloride 0.9% 10 ML Syringe FLUSH PRN (17:24)
[2018-11-18] MEDS: Doxepin 10 MG Cap PO SCH (20:54)
[2018-11-18] MEDS: atorvaSTATin 10 MG Tab PO SCH (20:54)
[2018-11-18] MEDS: Zolpidem 5 MG Tab PO SCH (20:55)
[2018-11-18] MEDS: traZODone 50 MG Tab PO SCH (20:55)
[2018-11-19] MEDS: Cetirizine 10 MG Tab PO SCH (07:45)
[2018-11-19] MEDS: Cholecalciferol (Vitamin D3) 1,000 Unit Tab PO SCH (07:46)
[2018-11-19] MEDS: Docusate Sodium 100 MG Cap PO SCH (07:46)
[2018-11-19] MEDS: Acetaminophen 500 MG Tab PO SCH ×3 (07:46→17:23)
[2018-11-19] MEDS: Calcium Carbonate 500 MG Tab.Chew PO SCH (07:47)
[2018-11-19] MEDS: Anastrozole 1 MG Tab PO SCH (07:47)
[2018-11-19] MEDS: Ascorbic Acid 500 MG Tab PO SCH ×3 (07:47→15:41)
[2018-11-19] MEDS: Allopurinol 100 MG Tab PO SCH (07:48)
[2018-11-19] MEDS: Furosemide 40 MG Tab PO SCH (07:48)
[2018-11-19] MEDS: Ferrous Sulfate 325 MG Tab PO SCH ×3 (07:48→15:42)
[2018-11-19] MEDS: Propranolol 20 MG Tab PO SCH (07:48)
[2018-11-19] MEDS: Spironolactone 25 MG Tab PO SCH (07:48)
[2018-11-19] MEDS: PHYTONADIONE 100 MCG PO SCH (07:49)
[2018-11-19] MEDS: CHERRY EXTRACT PO SCH (07:49)
[2018-11-19] MEDS: HYDROmorphone 2 MG Tab PO PRN ×2 (10:16→20:19)
[2018-11-19] MEDS: Furosemide 20 MG Tab PO SCH (11:28)
[2018-11-19] MEDS: Warfarin 5 MG Tab PO SCH (17:22)
[2018-11-19] MEDS: Zolpidem 5 MG Tab PO SCH (20:48)
[2018-11-19] MEDS: atorvaSTATin 10 MG Tab PO SCH (20:48)
[2018-11-19] MEDS: Doxepin 10 MG Cap PO SCH (20:49)
[2018-11-19] MEDS: traZODone 50 MG Tab PO SCH (20:49)
[2018-11-20] MEDS: Alendronate 70 MG Tab PO SCH (05:35)
[2018-11-20] MEDS: Ferrous Sulfate 325 MG Tab PO SCH ×3 (07:20→16:01)
[2018-11-20] MEDS: Ascorbic Acid 500 MG Tab PO SCH ×3 (07:21→16:00)
[2018-11-20] MEDS: Sodium Chloride 0.9% 10 ML Syringe FLUSH PRN ×2 (07:40→19:24)
[2018-11-20] MEDS: HYDROmorphone 2 MG Tab PO PRN ×2 (08:39→15:05)
[2018-11-20] MEDS: Anastrozole 1 MG Tab PO SCH (08:41)
[2018-11-20] MEDS: Acetaminophen 500 MG Tab PO SCH ×3 (08:42→17:22)
[2018-11-20] MEDS: Allopurinol 100 MG Tab PO SCH (08:42)
[2018-11-20] MEDS: Docusate Sodium 100 MG Cap PO SCH (08:43)
[2018-11-20] MEDS: Spironolactone 25 MG Tab PO SCH (08:44)
[2018-11-20] MEDS: Cholecalciferol (Vitamin D3) 1,000 Unit Tab PO SCH (08:44)
[2018-11-20] MEDS: Furosemide 40 MG Tab PO SCH (08:44)
[2018-11-20] MEDS: Propranolol 20 MG Tab PO SCH (08:45)
[2018-11-20] MEDS: PHYTONADIONE 100 MCG PO SCH (08:45)
[2018-11-20] MEDS: CHERRY EXTRACT PO SCH (08:45)
[2018-11-20] MEDS: Cetirizine 10 MG Tab PO SCH (08:48)
[2018-11-20] MEDS: Calcium Carbonate 500 MG Tab.Chew PO SCH (08:48)
[2018-11-20 09:01] LABS: CHLORIDE,CL 97 mmol/L (98-107); SODIUM,NA 131 mmol/L (136-145)
[2018-11-20] MEDS: Furosemide 20 MG Tab PO SCH (13:10)
[2018-11-20] MEDS: Warfarin 5 MG Tab PO SCH (17:23)
[2018-11-20] MEDS: traZODone 50 MG Tab PO SCH (19:22)
[2018-11-20] MEDS: atorvaSTATin 10 MG Tab PO SCH (19:23)
[2018-11-20] MEDS: Zolpidem 5 MG Tab PO SCH (19:23)
[2018-11-20] MEDS: Doxepin 10 MG Cap PO SCH (19:23)
[2018-11-21] MEDS: Ferrous Sulfate 325 MG Tab PO SCH ×3 (07:20→15:27)
[2018-11-21] MEDS: Ascorbic Acid 500 MG Tab PO SCH ×3 (07:20→15:27)
[2018-11-21] MEDS: PHYTONADIONE 100 MCG PO SCH (08:06)
[2018-11-21] MEDS: CHERRY EXTRACT PO SCH (08:07)
[2018-11-21] MEDS: Cholecalciferol (Vitamin D3) 1,000 Unit Tab PO SCH (08:07)
[2018-11-21] MEDS: Cetirizine 10 MG Tab PO SCH (08:07)
[2018-11-21] MEDS: Acetaminophen 500 MG Tab PO SCH ×3 (08:07→17:21)
[2018-11-21] MEDS: Furosemide 40 MG Tab PO SCH (08:07)
[2018-11-21] MEDS: Docusate Sodium 100 MG Cap PO SCH (08:08)
[2018-11-21] MEDS: Spironolactone 25 MG Tab PO SCH (08:08)
[2018-11-21] MEDS: Anastrozole 1 MG Tab PO SCH (08:08)
[2018-11-21] MEDS: Calcium Carbonate 500 MG Tab.Chew PO SCH (08:08)
[2018-11-21] MEDS: Propranolol 20 MG Tab PO SCH (08:08)
[2018-11-21] MEDS: Allopurinol 100 MG Tab PO SCH (08:08)
[2018-11-21] MEDS: Furosemide 20 MG Tab PO SCH (11:27)
[2018-11-21] MEDS: HYDROmorphone 2 MG Tab PO PRN (15:22)
--- NOTE | 2018-11-21 16:24 | PCM.DCSUM1 ---
Discharge Summary - Hospital Course Free Text/Narrative:: Patient admitted on 11/11/2018 post op right TKA. Patient admitted to [facility] for PT/ OT therapy for strengthening and ADLs and pain control. Patient stay was uneventful. Will continue to therapy at home. Patient will have home care at home and in home therapy to assist with ADLs, medication management, and strengthening. Patient needs these services related to recent surgery and ADL and strengthening needs at home. She has impaired mobility from recent surgery. Home Health will help manage medications as well. Patients PCP is Arnie Bailey who will resume primary care of patient. Diagnosis: Stroke: No - Discharge Data Discharge Date: 11/22/18 Discharge Disposition: Home, W Home Health Agency Condition: Good - Patient Summary/Data Consults: Consultations 11/11/18 15:18 Consult to Case Management/Customer Relations Coordinator [CONS] Routine OT Evaluation and Treatment [CONS] Routine PT Evaluation and Treatment [CONS] Routine - Patient Instructions Diet: Usual Diet as Tolerated Activity: As Tolerated Showering/Bathing: May Shower Wound/Incision Care: Keep Operative Site/Wound Site Clean and Dry Notify Provider of: Fever, Increased Pain, Swelling and Redness, Drainage - Discharge Plan *PRESCRIPTION DRUG MONITORING PROGRAM REVIEWED*: Not Applicable *COPY OF PRESCRIPTION DRUG MONITORING REPORT IN PATIENT MIRACLE: Not Applicable Prescriptions/Med Rec: HYDROmorphone [Dilaudid] 1 mg PO Q6H PRN #12 tablet PRN Reason: Pain Home Medications: Home Meds Albuterol Sulfate [Albuterol Sulfate HFA] 2 puff INH Q4HR PRN 09/10/13 [History] Phytonadione [Vitamin K] 100 mcg PO DAILY 09/10/13 [History] Spironolactone [Aldactone] 25 mg PO DAILY 09/10/13 [History] Warfarin Sodium [Jantoven] 5 mg PO SUTUTHSA 09/10/13 [History] Zolpidem [Ambien] 5 mg PO BEDTIME 09/10/13 [History] atorvaSTATin [Lipitor] 20 mg PO BEDTIME 09/10/13 [History] traZODone 100 mg PO BEDTIME 09/10/13 [History] Acetaminophen [Tylenol Extra Strength] 2 tab PO TID 11/11/18 [History] Alendronate Sodium [Fosamax] 70 mg PO ASDIRECTED 11/11/18 [History] Allopurinol [Zyloprim] 100 mg PO DAILY 11/11/18 [History] Anastrozole [Arimidex] 1 mg PO DAILY 11/11/18 [History] Ascorbic Acid 500 mg PO TID 11/11/18 [History] Bisacodyl [Dulcolax] 5 mg PO BID PRN 11/11/18 [History] Bisacodyl [Dulcolax] 10 mg RECTAL DAILY PRN 11/11/18 [History] Calcium Carbonate [Calcium] 500 mg PO QAM 11/11/18 [History] Cetirizine HCl 10 mg PO DAILY 11/11/18 [History] Cholecalciferol (Vitamin D3) [Vitamin D3] 1,000 units PO DAILY 11/11/18 [History ] Clindamycin HCl 300 mg PO ASDIRECTED PRN 11/11/18 [History] Docusate Sodium 100 mg PO DAILY 11/11/18 [History] Doxepin [SINEquan] 10 mg PO BEDTIME 11/11/18 [History] Ferrous Sulfate 325 mg PO TIDMEALS 11/11/18 [History] Furosemide 20 mg PO DAILY@1200 11/11/18 [History] Furosemide [Lasix] 40 mg PO QAM 11/11/18 [History] Hydrocortisone [Proctozone-HC 2.5% Crm] 1 applic RECTAL ASDIRECTED 11/11/18 [ History] Loperamide [Imodium AD] 2 mg PO ASDIRECTED MDD 8 caps per day 11/11/18 [History] Loperamide [Imodium AD] 4 mg PO ASDIRECTED PRN MDD 8 Caps per day 11/11/18 [ History] Non-Formulary Medication [NF Drug] 1 cap PO DAILY 11/11/18 [History] Polyethylene Glycol 3350 [MiraLAX] 1 packet PO DAILY PRN 11/11/18 [History] Propranolol [Inderal] 20 mg PO DAILY 11/11/18 [History] Warfarin [Coumadin] 7.5 mg PO MOWEFR 11/11/18 [History] HYDROmorphone [Dilaudid] 1 mg PO Q6H PRN #12 tablet 11/21/18 [Rx] Naproxen Sodium 220 mg PO Q12HR #0 tablet 11/21/18 [Rx] Referrals: Ryan Delgado MD [Ordering Only Provider] - 12/03/18 1:00 pm (Surgery Follow Up ) - Discharge Summary/Plan Comment DC Time >30 min.: No - General Info Date of Service: 11/21/18 Functional Status: Reports: Tolerating Diet, Ambulating (with assitance, will continue in home therapy with home health) - Review of Systems General: Reports: Weakness (improving) HEENT: Reports: No Symptoms Pulmonary: Reports: No Symptoms Cardiovascular: Reports: No Symptoms Gastrointestinal: Reports: No Symptoms Genitourinary: Reports: No Symptoms Musculoskeletal: Reports: Leg Pain (right knee ) Skin: Reports: No Symptoms Neurological: Reports: No Symptoms, Tremors (chronic ) Psychiatric: Reports: No Symptoms - Patient Data Vitals - Most Recent: Last Vital Signs Temp 97.8 F 11/21/18 08:00 Pulse 98 11/21/18 08:00 Resp 17 11/21/18 08:00 BP 151/129 H 11/21/18 08:00 Pulse Ox 95 11/21/18 08:00 Weight - Most Recent: 209 lb 9.6 oz Med Orders - Current: Current Medications Acetaminophen (Tylenol Extra Strength) 1,000 mg PO TID [facility] Last Admin: 11/21/18 11:27 Dose: 1,000 mg Albuterol (Proventil Neb Soln) 2.5 mg INH Q2H PRN PRN Reason: SHORTNESS OF BREATH Albuterol/Ipratropium (Duoneb 3.0-0.5 Mg/3 Ml) 3 ml NEB Q4HRRT PRN PRN Reason: Dyspnea Alendronate Sodium (Fosamax) 70 mg PO We@0600 [facility] Last Admin: 11/20/18 05:35 Dose: 70 mg Allopurinol (Zyloprim) 100 mg PO DAILY [facility] Last Admin: 11/21/18 08:08 Dose: 100 mg Anastrozole (Arimidex) 1 mg PO DAILY [facility] Last Admin: 11/21/18 08:08 Dose: 1 mg Ascorbic Acid (Vitamin C) 500 mg PO TID@0700,1100,1600 [facility] Last Admin: 11/21/18 15:27 Dose: 500 mg Atorvastatin Calcium (Lipitor) 20 mg PO BEDTIME [facility] Last Admin: 11/20/18 19:23 Dose: 20 mg Bisacodyl (Dulcolax) 5 mg PO BID PRN PRN Reason: Constipation Last Admin: 11/18/18 17:21 Dose: 5 mg Bisacodyl (Dulcolax) 10 mg RECTAL DAILY PRN PRN Reason: Constipation Calcium Carbonate/Glycine (Tums) 500 mg PO QAM [facility] Last Admin: 11/21/18 08:08 Dose: 500 mg Cetirizine HCl (Zyrtec) 10 mg PO DAILY [facility] Last Admin: 11/21/18 08:07 Dose: 10 mg Cholecalciferol (Vitamin D3) 1,000 units PO DAILY [facility] Last Admin: 11/21/18 08:07 Dose: 1,000 units Docusate Sodium (Colace) 100 mg PO DAILY [facility] Last Admin: 11/21/18 08:08 Dose: 100 mg Doxepin HCl (Sinequan) 10 mg PO BEDTIME [facility] Last Admin: 11/20/18 19:23 Dose: 10 mg Ferrous Sulfate (Ferrous Sulfate) 325 mg PO TID@0700,1100,1600 [facility] Last Admin: 11/21/18 15:27 Dose: 325 mg Furosemide (Lasix) 40 mg PO QAM [facility] Last Admin: 11/21/18 08:07 Dose: 40 mg Furosemide (Lasix) 20 mg PO DAILY@1200 [facility] Last Admin: 11/21/18 11:27 Dose: 20 mg Heparin Sodium (Porcine) (Heparin Lock Flush 100 Units/Ml) 500 units FLUSH ASDIRECTED PRN PRN Reason: Other Last Admin: 11/20/18 07:40 Dose: 500 units Hydrocortisone (Proctozone-Hc 2.5% Crm) 0 gm TOP ASDIRECTED PRN PRN Reason: ITCHING OR MILD PAIN Last Admin: 11/15/18 15:40 Dose: 1 applic Hydromorphone HCl (Dilaudid) 1 mg PO Q6H PRN PRN Reason: Pain Last Admin: 11/21/18 15:22 Dose: 1 mg Loperamide HCl (Imodium Ad) 2 mg PO ASDIRECTED PRN PRN Reason: Diarrhea Naproxen (Naproxen Sodium) 220 mg PO Q12HR [facility] Last Admin: 11/21/18 08:07 Dose: 220 mg Schaeffer Extract (Capsules) 1 each PO DAILY [facility] Last Admin: 11/21/18 08:07 Dose: 1 each Phytonadione [ Vitamin K] 100 Mcg Tablets 100 mcg PO DAILY [facility] Last Admin: 11/21/18 08:06 Dose: 100 mcg Ondansetron HCl (Zofran Odt) 4 mg PO Q6H PRN PRN Reason: Nausea/Vomiting Last Admin: 11/13/18 13:10 Dose: 4 mg Polyethylene Glycol (Miralax) 17 gm PO DAILY PRN PRN Reason: Constipation Last Admin: 11/18/18 17:20 Dose: 17 gm Propranolol HCl (Inderal) 20 mg PO DAILY [facility] Last Admin: 11/21/18 08:08 Dose: 20 mg Sodium Chloride (Saline Flush) 10 ml FLUSH ASDIRECTED PRN PRN Reason: Keep Vein Open Last Admin: 11/20/18 19:24 Dose: 10 ml Spironolactone (Aldactone) 25 mg PO DAILY [facility] Last Admin: 11/21/18 08:08 Dose: 25 mg Trazodone HCl (Trazodone) 100 mg PO BEDTIME [facility] Last Admin: 11/20/18 19:22 Dose: 100 mg Warfarin Sodium (Coumadin) 5 mg PO SUTUTHSA@1800 [facility] Last Admin: 11/19/18 17:22 Dose: 5 mg Warfarin Sodium (Coumadin) 7.5 mg PO MOWEFR@1800 [facility] Last Admin: 11/20/18 17:23 Dose: 7.5 mg Zolpidem Tartrate (Ambien) 5 mg PO BEDTIME [facility] Last Admin: 11/20/18 19:23 Dose: 5 mg Discontinued Medications Albuterol/Ipratropium (Duoneb 3.0-0.5 Mg/3 Ml) 3 ml NEB Q6HRRT [facility] Last Admin: 11/12/18 08:07 Dose: Not Given Ascorbic Acid (Vitamin C) 500 mg PO TID [facility] Last Admin: 11/14/18 11:15 Dose: 500 mg Ascorbic Acid (Vitamin C) 500 mg PO TID@0800,1100,1600 [facility] Last Admin: 11/15/18 07:37 Dose: 500 mg Ferrous Sulfate (Ferrous Sulfate) 325 mg PO TIDMEALS [facility] Last Admin: 11/14/18 11:14 Dose: 325 mg Ferrous Sulfate (Ferrous Sulfate) 325 mg PO TID@0800,1100,1600 [facility] Last Admin: 11/15/18 07:37 Dose: 325 mg Furosemide (Lasix) 20 mg PO DAILY@1200 [facility] Furosemide (Lasix) 40 mg PO DAILY@1200 [facility] Last Admin: 11/14/18 11:16 Dose: 40 mg Hydromorphone HCl (Dilaudid) 2 mg PO Q4H PRN PRN Reason: Pain (moderate 4-6) Stop: 11/17/18 20:00 Last Admin: 11/17/18 01:43 Dose: 2 mg Sodium Chloride (Normal Saline) 250 mls @ 50 mls/hr IV ASDIRECTED [facility] Stop: 11/14/18 18:14 Last Admin: 11/14/18 13:20 Dose: 50 mls/hr Lisinopril (Prinivil) 10 mg PO QPM [facility] Last Admin: 11/14/18 16:59 Dose: Not Given Naproxen (Naprosyn) 375 mg PO Q12HR [facility] Last Admin: 11/12/18 19:51 Dose: Not Given Temazepam (Restoril) 15 mg PO BEDTIME PRN PRN Reason: Sleep Warfarin Sodium (Coumadin) 7.5 mg PO MoWeFr@1600 [facility] Last Admin: 11/11/18 16:36 Dose: 7.5 mg Warfarin Sodium (Coumadin) 5 mg PO SuTuThSa@1600 [facility] Warfarin Sodium (Coumadin) 5 mg PO DAILY@1800 [facility] Last Admin: 11/16/18 17:32 Dose: 5 mg - Exam General: Reports: Alert, Oriented HEENT: Reports: Pupils Equal, Mucous Membr. Moist/[place] (Female) Exam: Deferred Rectal (Female) Exam: Deferred Skin: Reports: Warm, Dry Wound/Incisions: Reports: Healing Well Neurological: Reports: No New Focal Deficit Psy/Mental Status: Reports: Alert, Normal Affect, Normal Mood
[2018-11-21] MEDS: Warfarin 5 MG Tab PO SCH (17:21)
[2018-11-21] MEDS: Doxepin 10 MG Cap PO SCH (20:54)
[2018-11-21] MEDS: Zolpidem 5 MG Tab PO SCH (20:54)
[2018-11-21] MEDS: atorvaSTATin 10 MG Tab PO SCH (20:54)
[2018-11-21] MEDS: traZODone 50 MG Tab PO SCH (20:55)
[2018-11-22] MEDS: Acetaminophen 500 MG Tab PO SCH (07:46)
[2018-11-22] MEDS: Docusate Sodium 100 MG Cap PO SCH (07:46)
[2018-11-22] MEDS: Ferrous Sulfate 325 MG Tab PO SCH (07:46)
[2018-11-22] MEDS: Ascorbic Acid 500 MG Tab PO SCH (07:46)
[2018-11-22] MEDS: Spironolactone 25 MG Tab PO SCH (07:46)
[2018-11-22] MEDS: Calcium Carbonate 500 MG Tab.Chew PO SCH (07:46)
[2018-11-22] MEDS: Allopurinol 100 MG Tab PO SCH (07:48)
[2018-11-22] MEDS: Propranolol 20 MG Tab PO SCH (07:48)
[2018-11-22] MEDS: Cholecalciferol (Vitamin D3) 1,000 Unit Tab PO SCH (07:48)
[2018-11-22] MEDS: Anastrozole 1 MG Tab PO SCH (07:48)
[2018-11-22] MEDS: Furosemide 40 MG Tab PO SCH (07:49)
[2018-11-22] MEDS: Cetirizine 10 MG Tab PO SCH (07:49)
[2018-11-22] MEDS: CHERRY EXTRACT PO SCH (07:49)
[2018-11-22] MEDS: PHYTONADIONE 100 MCG PO SCH (07:49)
== END 2018-11-22 10:15 | disposition home health service (06) | DRG 560 ==
LOC: LL.MS 13:45
PROVIDERS: ADMIT Family Medicine; ATTEND Family Medicine
PROC: 30233N1 Transfusion of Nonautologous Red Blood Cells into Peripheral Vein, Percutaneous Approach (ICD-10-PCS; principal; 2018-11-13)
DX: Z47.1 Aftercare following joint replacement surgery (principal); Z94.1 Heart transplant status; I45.2 Bifascicular block; I48.91 Unspecified atrial fibrillation; E78.00 Pure hypercholesterolemia, unspecified; I11.0 Hypertensive heart disease with heart failure; I50.9 Heart failure, unspecified; J45.909 Unspecified asthma, uncomplicated; M81.0 Age-related osteoporosis without current pathological fracture; Z96.653 Presence of artificial knee joint, bilateral; I49.3 Ventricular premature depolarization; D64.9 Anemia, unspecified; Z90.89 Acquired absence of other organs; Z98.41 Cataract extraction status, right eye; Z98.42 Cataract extraction status, left eye; Z79.01 Long term (current) use of anticoagulants; Z88.1 Allergy status to other antibiotic agents; Z88.5 Allergy status to narcotic agent; Z88.2 Allergy status to sulfonamides; Z79.899 Other long term (current) drug therapy
CPT/HCPCS: 36415; 36430; 71046; 80048; 80053; 82272; 82550; 82553; 83880; 84484; 84550; 85025; 85610; 86850; 86900; 86901; 86920; 86922; 93005; 96523; 97110-GO; 97110-GP; 97116-GP; 97162-GP; 97165-GO; 97530-GO; 97530-GP; 97535-GO; A9270-GY; J1642; J7050; P9016